=== PATIENT | female | born 1945 | race Caucasian/White ===

== ENCOUNTER → 2016-09-20 | Outpatient (REF) | payer MEDICARE, BC, OTHER | LOC: M LAB REF 16:25 | PROVIDERS: ATTEND Nurse Practitioner Adult Health | DX: J45.909 Unspecified asthma, uncomplicated (principal) ==

== ENCOUNTER → 2017-03-28 | Outpatient (REF) | payer MEDICARE, BC, OTHER | LOC: M LAB REF 13:11 | PROVIDERS: ATTEND Nurse Practitioner Adult Health | DX: J45.909 Unspecified asthma, uncomplicated (principal) ==

== ENCOUNTER → 2017-04-16 | Outpatient (REF) | payer MEDICARE, OTHER | LOC: M LAB REF 13:55 | PROVIDERS: ATTEND Nurse Practitioner Adult Health | DX: J45.909 Unspecified asthma, uncomplicated (principal) ==

== ENCOUNTER → 2017-11-26 | Outpatient (REF) | payer MEDICARE, OTHER | LOC: M SFHCLERA 13:04 | DX: R30.0 Dysuria (principal) | CPT/HCPCS: 87088; 87186 ==

== ENCOUNTER 2017-12-19 09:27 | Day surgery (SDC) | payer MEDICARE, OTHER, BC ==
[2017-12-19] MEDS: NS 1,000 ML IV (09:44)
[2017-12-19] MEDS ORDERED: PROPOFOL 200 MG/20 ML VIAL As Ordered (10:09)
[2017-12-19] MEDS ORDERED: LIDOCAINE 2% INJ 100 MG/5 ML SDV (FOR ANES.) As Ordered (10:09)
== END 2017-12-19 11:53 | disposition home or self-care (01) ==
LOC: M OPP 09:27
DX: K62.5 Hemorrhage of anus and rectum (principal); K51.90 Ulcerative colitis, unspecified, without complications; K64.0 First degree hemorrhoids; M19.90 Unspecified osteoarthritis, unspecified site; J45.909 Unspecified asthma, uncomplicated; J44.9 Chronic obstructive pulmonary disease, unspecified; Z87.440 Personal history of urinary (tract) infections; Z87.891 Personal history of nicotine dependence; Z88.1 Allergy status to other antibiotic agents; Z79.899 Other long term (current) drug therapy
CPT/HCPCS: 45380

== ENCOUNTER → 2018-03-20 | Outpatient (REF) | payer MEDICARE, OTHER ==
[2018-03-20 13:36] LABS: THEOPHYLLINE LEVEL 3.6 UG/ML (10.0-20.0)
== END ==
LOC: M LAB REF 12:45
DX: J45.909 Unspecified asthma, uncomplicated (principal)
CPT/HCPCS: 80198

== ENCOUNTER 2018-03-26 17:03 | Inpatient (IN) | payer MEDICARE, BC, OTHER ==
[2018-03-26] MEDS: ONDANSETRON 4MG/2ML VIAL (J2405) IV (17:53)
[2018-03-26 17:59] LABS: ALBUMIN 4.1 GM/DL (3.2-5.2); ALBUMIN/GLOBULIN RATIO 1.41 (1.00-1.93); ALKALINE PHOSPHATASE 73 U/L (45-117); ALT/SGPT 15 U/L (12-78); ANION GAP 9 MEQ/L (8-16); AST/SGOT 14 U/L (7-37); BASO % 0.3 % (0.0-1.0); BILIRUBIN,DIRECT 0.1 MG/DL (0.0-0.2); BILIRUBIN,TOTAL 0.7 MG/DL (0.2-1.0); BLOOD UREA NITROGEN 14 MG/DL (7-18); CALCIUM LEVEL 9.5 MG/DL (8.8-10.2); CARBON DIOXIDE LEVEL 27 MEQ/L (21-32); CHLORIDE LEVEL 105 MEQ/L (98-107); CK-MB VALUE MASS < 1.0 NG/ML (<3.6); CPK CREATINE PHOSPHOKINASE 54 U/L (26-192); CREATININE FOR GFR 0.68 MG/DL (0.55-1.30); EOS # 0.1 10^3/uL (0.0-0.50); EOS % 0.9 % (0.0-3.0); GLOMERULAR FILTRATION RATE > 60.0 (>39); GLUCOSE, FASTING 124 MG/DL (70-100); HEMATOCRIT 44.5 % (36.0-47.0); HEMOGLOBIN 14.6 g/dl (12.0-15.5); IMMATURE GRANULOCYTE % 0.5 % (0-3.0); LIPASE 82 U/L (73-393); LYMPH # 0.9 10^3/uL (1.5-4.5); LYMPH % 10.4 % (24.0-44.0); MB/CK RELATIVE INDEX 1.85 (< OR =4); MEAN CORPUSCULAR HEMOGLOBIN 29.3 pg (27.0-33.0); MEAN CORPUSCULAR HGB CONC 32.8 g/dl (32.0-36.5); MEAN CORPUSCULAR VOLUME 89.4 fl (80.0-96.0); MONO # 0.3 10^3/uL (0.0-0.8); MONO % 3.4 % (0.0-5.0); NEUTROPHILS # 7.5 10^3/uL (1.8-7.7); NEUTROPHILS % 84.5 % (36.0-66.0); PLATELET COUNT, AUTOMATED 236 10^3/uL (150-450); POTASSIUM SERUM 3.7 MEQ/L (3.5-5.1); RED BLOOD COUNT 4.98 10^6/uL (4.00-5.40); RED CELL DISTRIBUTION WIDTH 13.2 % (11.5-14.5); SODIUM LEVEL 141 MEQ/L (136-145); TROPONIN I < 0.02 NG/ML (< 0.10); WHITE BLOOD COUNT 8.9 10^3/uL (4.0-10.0)
[2018-03-26 18:06] LABS: INR 1.03; PROTHROMBIN TIME 13.7 SECONDS (12.1-14.4)
[2018-03-26 18:07] LABS: PARTIAL THROMBOPLASTIN TIME 25.4 SECONDS (25.4-37.6)
[2018-03-26 18:10] LABS: D-DIMER QUANT 376.5 ng/ml (<500)
[2018-03-26] MEDS: MORPHINE 2 MG/ML 1ML SYRINGE (J2270) IV (18:43)
[2018-03-26] MEDS: METOCLOPRAMIDE INJ 10MG/2ML VIAL (J2765) IV (19:45)
[2018-03-26] MEDS: HYDROMORPHONE HCL 0.5 MG/ 0.5 ML SYRINGE (J1170 PER 1) IV ×2 (19:53→21:39)
[2018-03-26] MEDS ORDERED: ISOVUE-370 76% 100ML VIAL (Q9967) As Ordered (20:17)
[2018-03-27] MEDS: MORPHINE 4 MG/ML 1ML VIAL/SYRINGE (J2270) IV (03:16)
[2018-03-27] MEDS: NS 1,000 ML IV ×2 (04:45→17:35)
[2018-03-27] MEDS: PANTOPRAZOLE 40MG INJ (PROTONIX) (C9113) IV (05:01)
[2018-03-27] MEDS: HEPARIN SOD (PORCINE) 5000 UNITS/ML VIAL SC ×3 (05:01→22:11)
[2018-03-27] MEDS: ONDANSETRON 4MG/2ML VIAL (J2405) IV (05:01)
[2018-03-27 07:08] LABS: BASO % 0.3 % (0.0-1.0); EOS % 0.1 % (0.0-3.0); HEMATOCRIT 44.9 % (36.0-47.0); IMMATURE GRANULOCYTE % 0.4 % (0-3.0); LYMPH # 0.8 10^3/uL (1.5-4.5); LYMPH % 7.4 % (24.0-44.0); MEAN CORPUSCULAR HEMOGLOBIN 29.4 pg (27.0-33.0); MEAN CORPUSCULAR HGB CONC 33.4 g/dl (32.0-36.5); MEAN CORPUSCULAR VOLUME 87.9 fl (80.0-96.0); MONO # 0.9 10^3/uL (0.0-0.8); NEUTROPHILS % 83.8 % (36.0-66.0); PLATELET COUNT, AUTOMATED 229 10^3/uL (150-450); RED BLOOD COUNT 5.11 10^6/uL (4.00-5.40); WHITE BLOOD COUNT 10.8 10^3/uL (4.0-10.0)
[2018-03-27 07:44] LABS: ALBUMIN 3.7 GM/DL (3.2-5.2); ALBUMIN/GLOBULIN RATIO 1.03 (1.00-1.93); ALKALINE PHOSPHATASE 70 U/L (45-117); ALT/SGPT 15 U/L (12-78); ANION GAP 6 MEQ/L (8-16); AST/SGOT 14 U/L (7-37); BILIRUBIN,TOTAL 0.8 MG/DL (0.2-1.0); BLOOD UREA NITROGEN 12 MG/DL (7-18); CARBON DIOXIDE LEVEL 30 MEQ/L (21-32); CHLORIDE LEVEL 103 MEQ/L (98-107); CREATININE FOR GFR 0.67 MG/DL (0.55-1.30); GLOMERULAR FILTRATION RATE > 60.0 (>39); GLUCOSE, FASTING 123 MG/DL (70-100); POTASSIUM SERUM 3.9 MEQ/L (3.5-5.1); SODIUM LEVEL 139 MEQ/L (136-145); TOTAL PROTEIN 7.3 GM/DL (6.4-8.2); TROPONIN I 0.15 NG/ML (< 0.10)
[2018-03-27] MEDS ORDERED: ALBUTEROL 90 MCG/ACT 8GM HFA INHALER INH (08:30)
[2018-03-27] MEDS: THEOPHYLLINE (THEO-24) 100MG SR **CAPSULE PO ×2 (09:00)
[2018-03-27] MEDS ORDERED: E-Z-PAQUE 96% w/w SUSP 176GM BTL As Ordered (09:07)
[2018-03-27] MEDS ORDERED: E-Z-GAS II EFFERVESCENT PACKET (SODIUM BICARB./CITRIC ACID/SIMETHICONE) As Ordered (09:08)
[2018-03-27] MEDS ORDERED: E-Z-HD 98% w/w 340GM SUSP BTL As Ordered (09:08)
[2018-03-27] MEDS: LISINOPRIL 5 MG TAB PO (14:04)
[2018-03-27 15:22] LABS: CPK CREATINE PHOSPHOKINASE 59 U/L (26-192); MB/CK RELATIVE INDEX 2.37 (< OR =4); TROPONIN I 0.19 NG/ML (< 0.10)
[2018-03-27] MEDS: ANORO ELLIPTA INH (15:51)
[2018-03-27] MEDS: KETOROLAC 30 MG/ML VIAL (J1885) IV (16:27)
[2018-03-27] MEDS: PIPERACILLIN/TAZOBACTAM SOD 3.375 GM in D5W MINI-BAG PLUS 50 ML IV ×2 (17:34→22:11)
[2018-03-27] MEDS: ASPIRIN 81 MG CHEW TABLET PO (17:35)
[2018-03-27 23:11] LABS: CPK CREATINE PHOSPHOKINASE 54 U/L (26-192); MB/CK RELATIVE INDEX 2.04 (< OR =4)
[2018-03-28] MEDS: PIPERACILLIN/TAZOBACTAM SOD 3.375 GM in D5W MINI-BAG PLUS 50 ML IV ×4 (05:11→22:28)
[2018-03-28] MEDS: HEPARIN SOD (PORCINE) 5000 UNITS/ML VIAL SC ×3 (05:11→22:28)
[2018-03-28] MEDS: PANTOPRAZOLE 40MG INJ (PROTONIX) (C9113) IV (05:11)
[2018-03-28 06:54] LABS: BASO # 0.1 10^3/uL (0.0-0.2); BASO % 0.6 % (0.0-1.0); EOS # 0.1 10^3/uL (0.0-0.50); EOS % 1.8 % (0.0-3.0); HEMATOCRIT 38.6 % (36.0-47.0); IMMATURE GRANULOCYTE % 0.3 % (0-3.0); LYMPH # 1.3 10^3/uL (1.5-4.5); LYMPH % 16.4 % (24.0-44.0); MEAN CORPUSCULAR HEMOGLOBIN 28.7 pg (27.0-33.0); MEAN CORPUSCULAR HGB CONC 32.4 g/dl (32.0-36.5); MEAN CORPUSCULAR VOLUME 88.5 fl (80.0-96.0); MONO # 0.8 10^3/uL (0.0-0.8); MONO % 9.8 % (0.0-5.0); NEUTROPHILS # 5.5 10^3/uL (1.8-7.7); NEUTROPHILS % 71.1 % (36.0-66.0); PLATELET COUNT, AUTOMATED 195 10^3/uL (150-450); RED BLOOD COUNT 4.36 10^6/uL (4.00-5.40); RED CELL DISTRIBUTION WIDTH 13.2 % (11.5-14.5); WHITE BLOOD COUNT 7.8 10^3/uL (4.0-10.0)
[2018-03-28 07:00] LABS: HEMOGLOBIN 12.5 g/dl (12.0-15.5)
[2018-03-28 07:26] LABS: ALBUMIN 2.8 GM/DL (3.2-5.2); ALBUMIN/GLOBULIN RATIO 0.97 (1.00-1.93); ALKALINE PHOSPHATASE 52 U/L (45-117); ALT/SGPT 14 U/L (12-78); ANION GAP 10 MEQ/L (8-16); AST/SGOT 12 U/L (7-37); BILIRUBIN,DIRECT 0.3 MG/DL (0.0-0.2); BILIRUBIN,TOTAL 1.2 MG/DL (0.2-1.0); BLOOD UREA NITROGEN 21 MG/DL (7-18); CALCIUM LEVEL 7.9 MG/DL (8.8-10.2); CARBON DIOXIDE LEVEL 28 MEQ/L (21-32); CHLORIDE LEVEL 105 MEQ/L (98-107); CK-MB VALUE MASS < 1.0 NG/ML (<3.6); CPK CREATINE PHOSPHOKINASE 43 U/L (26-192); CREATININE FOR GFR 0.92 MG/DL (0.55-1.30); GLOMERULAR FILTRATION RATE > 60.0 (>39); GLUCOSE, FASTING 82 MG/DL (70-100); MB/CK RELATIVE INDEX 2.33 (< OR =4); POTASSIUM SERUM 3.2 MEQ/L (3.5-5.1); SODIUM LEVEL 143 MEQ/L (136-145); TOTAL PROTEIN 5.7 GM/DL (6.4-8.2); TROPONIN I 0.09 NG/ML (< 0.10)
[2018-03-28] MEDS: ANORO ELLIPTA INH (08:12)
[2018-03-28] MEDS: POTASSIUM CHLORIDE 10 MEQ SR TABLET PO ×2 (09:42→10:30)
[2018-03-28] MEDS: NS 1,000 ML IV ×4 (09:42→16:36)
[2018-03-28] MEDS: THEOPHYLLINE (THEO-24) 100MG SR **CAPSULE PO (09:43)
[2018-03-28] MEDS: ASPIRIN 81 MG ENTERIC TAB PO (09:43)
[2018-03-28] MEDS: KETOROLAC 30 MG/ML VIAL (J1885) IV (13:43)
[2018-03-28 15:23] LABS: CK-MB VALUE MASS < 1.0 NG/ML (<3.6); CPK CREATINE PHOSPHOKINASE 47 U/L (26-192); MB/CK RELATIVE INDEX 2.13 (< OR =4); TROPONIN I 0.06 NG/ML (< 0.10)
[2018-03-28 15:30] LABS: HEMATOCRIT 35.7 % (36.0-47.0); HEMOGLOBIN 11.7 g/dl (12.0-15.5); MEAN CORPUSCULAR HEMOGLOBIN 29.6 pg (27.0-33.0); MEAN CORPUSCULAR HGB CONC 32.8 g/dl (32.0-36.5); MEAN CORPUSCULAR VOLUME 90.4 fl (80.0-96.0); PLATELET COUNT, AUTOMATED 187 10^3/uL (150-450); RED BLOOD COUNT 3.95 10^6/uL (4.00-5.40); RED CELL DISTRIBUTION WIDTH 13.2 % (11.5-14.5); WHITE BLOOD COUNT 7.2 10^3/uL (4.0-10.0)
[2018-03-28 15:40] LABS: ANION GAP 6 MEQ/L (8-16); BLOOD UREA NITROGEN 22 MG/DL (7-18); CALCIUM LEVEL 7.7 MG/DL (8.8-10.2); CARBON DIOXIDE LEVEL 29 MEQ/L (21-32); CHLORIDE LEVEL 107 MEQ/L (98-107); GLOMERULAR FILTRATION RATE > 60.0 (>39); GLUCOSE, FASTING 85 MG/DL (70-100); POTASSIUM SERUM 3.5 MEQ/L (3.5-5.1); SODIUM LEVEL 142 MEQ/L (136-145)
[2018-03-28 19:34] LABS: AMORPHOUS SEDIMENT SMALL (NEGATIVE); APPEARANCE, URINE HAZY (CLEAR); BACTERIA, URINE AUTO NEGATIVE (NEGATIVE); BILIRUBIN, URINE AUTO NEGATIVE (NEGATIVE); BLOOD, URINE BLOOD NEGATIVE (NEGATIVE); COLOR, URINE YELLOW (YELLOW); GLUCOSE, URINE (UA) AUTO NEGATIVE (NEGATIVE); KETONE, URINE AUTO 1+ mg/dL (NEGATIVE); LEUKOCYTE ESTERASE, URINE AUTO NEGATIVE (NEGATIVE); NITRITE, URINE AUTO NEGATIVE (NEGATIVE); PROTEIN, URINE AUTO NEGATIVE (NEGATIVE); RBC, URINE AUTO 3 /HPF (0-3); SPECIFIC GRAVITY URINE AUTO 1.042 (1.002-1.035); SQUAMOUS EPITHELIAL CELL UR AU 1 /HPF (0-6); UROBILINOGEN, URINE AUTO 0.2 mg/dL (0.0-2.0); WBC, URINE AUTO 3 /HPF (0-3)
[2018-03-29] MEDS: PIPERACILLIN/TAZOBACTAM SOD 3.375 GM in D5W MINI-BAG PLUS 50 ML IV ×4 (03:55→22:43)
[2018-03-29] MEDS: PANTOPRAZOLE 40MG INJ (PROTONIX) (C9113) IV (05:49)
[2018-03-29] MEDS: HEPARIN SOD (PORCINE) 5000 UNITS/ML VIAL SC ×3 (05:49→22:28)
[2018-03-29 06:38] LABS: BASO % 0.4 % (0.0-1.0); EOS # 0.4 10^3/uL (0.0-0.50); EOS % 6.9 % (0.0-3.0); HEMATOCRIT 33.4 % (36.0-47.0); HEMOGLOBIN 10.7 g/dl (12.0-15.5); IMMATURE GRANULOCYTE % 0.4 % (0-3.0); LYMPH # 1.5 10^3/uL (1.5-4.5); LYMPH % 28.1 % (24.0-44.0); MEAN CORPUSCULAR VOLUME 90.5 fl (80.0-96.0); MONO # 0.6 10^3/uL (0.0-0.8); MONO % 10.7 % (0.0-5.0); NEUTROPHILS # 2.9 10^3/uL (1.8-7.7); NEUTROPHILS % 53.5 % (36.0-66.0); PLATELET COUNT, AUTOMATED 156 10^3/uL (150-450); RED BLOOD COUNT 3.69 10^6/uL (4.00-5.40); RED CELL DISTRIBUTION WIDTH 13.3 % (11.5-14.5); WHITE BLOOD COUNT 5.3 10^3/uL (4.0-10.0)
[2018-03-29 06:56] LABS: ANION GAP 7 MEQ/L (8-16); BLOOD UREA NITROGEN 13 MG/DL (7-18); CALCIUM LEVEL 7.8 MG/DL (8.8-10.2); CARBON DIOXIDE LEVEL 25 MEQ/L (21-32); CHLORIDE LEVEL 111 MEQ/L (98-107); CREATININE FOR GFR 0.75 MG/DL (0.55-1.30); GLOMERULAR FILTRATION RATE > 60.0 (>39); GLUCOSE, FASTING 85 MG/DL (70-100); POTASSIUM SERUM 3.2 MEQ/L (3.5-5.1); SODIUM LEVEL 143 MEQ/L (136-145)
[2018-03-29] MEDS: SODIUM CHLORIDE 0.9% 1000ML IV (07:30)
[2018-03-29] MEDS: ANORO ELLIPTA INH (08:17)
[2018-03-29] MEDS: DOCUSATE SODIUM 100 MG CAP PO (09:00)
[2018-03-29] MEDS: ASPIRIN 81 MG ENTERIC TAB PO (09:20)
[2018-03-29] MEDS: THEOPHYLLINE (THEO-24) 100MG SR **CAPSULE PO (09:20)
[2018-03-29] MEDS: POTASSIUM CHLORIDE 10 MEQ SR TABLET PO ×2 (09:21→14:12)
[2018-03-29 11:13] LABS: LACTIC ACID SEPSIS PROTOCOL 1.3 MMOL/L (0.4-2.0)
[2018-03-29 11:14] LABS: ALBUMIN 2.7 GM/DL (3.2-5.2); ALKALINE PHOSPHATASE 54 U/L (45-117); ALT/SGPT 17 U/L (12-78); ANION GAP 2 MEQ/L (8-16); AST/SGOT 28 U/L (7-37); BILIRUBIN,TOTAL 0.6 MG/DL (0.2-1.0); BLOOD UREA NITROGEN 12 MG/DL (7-18); C REACTIVE PROTEIN QUANTITATIV 7.34 MG/DL (0.00-0.30); CALCIUM LEVEL 7.8 MG/DL (8.8-10.2); CARBON DIOXIDE LEVEL 29 MEQ/L (21-32); CHLORIDE LEVEL 112 MEQ/L (98-107); CREATININE FOR GFR 0.81 MG/DL (0.55-1.30); GLOMERULAR FILTRATION RATE > 60.0 (>39); GLUCOSE, FASTING 85 MG/DL (70-100); POTASSIUM SERUM 3.7 MEQ/L (3.5-5.1); SODIUM LEVEL 143 MEQ/L (136-145); TOTAL PROTEIN 5.4 GM/DL (6.4-8.2)
[2018-03-29 13:48] LABS: LDH LACTATE DEHYDROGENASE 160 U/L (84-246)
[2018-03-29 14:15] LABS: REASON FOR REVIEW RBC MORPHOLOGY; SLIDE REVIEW Report; SOURCE PERIPHERAL SMEAR
[2018-03-30] MEDS: PIPERACILLIN/TAZOBACTAM SOD 3.375 GM in D5W MINI-BAG PLUS 50 ML IV ×4 (04:42→23:33)
[2018-03-30] MEDS: HEPARIN SOD (PORCINE) 5000 UNITS/ML VIAL SC ×3 (05:00→22:00)
[2018-03-30 07:03] LABS: BASO % 0.8 % (0.0-1.0); EOS # 0.4 10^3/uL (0.0-0.50); EOS % 8.2 % (0.0-3.0); HEMATOCRIT 34.4 % (36.0-47.0); HEMOGLOBIN 11.2 g/dl (12.0-15.5); IMMATURE GRANULOCYTE % 0.4 % (0-3.0); LYMPH # 1.3 10^3/uL (1.5-4.5); LYMPH % 24.4 % (24.0-44.0); MEAN CORPUSCULAR HEMOGLOBIN 28.9 pg (27.0-33.0); MEAN CORPUSCULAR HGB CONC 32.6 g/dl (32.0-36.5); MEAN CORPUSCULAR VOLUME 88.9 fl (80.0-96.0); MONO # 0.6 10^3/uL (0.0-0.8); MONO % 11.1 % (0.0-5.0); NEUTROPHILS # 2.8 10^3/uL (1.8-7.7); NEUTROPHILS % 55.1 % (36.0-66.0); PLATELET COUNT, AUTOMATED 170 10^3/uL (150-450); RED BLOOD COUNT 3.87 10^6/uL (4.00-5.40); RED CELL DISTRIBUTION WIDTH 13.2 % (11.5-14.5); WHITE BLOOD COUNT 5.1 10^3/uL (4.0-10.0)
[2018-03-30 07:30] LABS: ANION GAP 6 MEQ/L (8-16); BLOOD UREA NITROGEN 7 MG/DL (7-18); CARBON DIOXIDE LEVEL 27 MEQ/L (21-32); CHLORIDE LEVEL 110 MEQ/L (98-107); CREATININE FOR GFR 0.67 MG/DL (0.55-1.30); GLOMERULAR FILTRATION RATE > 60.0 (>39); GLUCOSE, FASTING 87 MG/DL (70-100); POTASSIUM SERUM 4.1 MEQ/L (3.5-5.1); SODIUM LEVEL 143 MEQ/L (136-145)
[2018-03-30] MEDS: ANORO ELLIPTA INH (07:34)
[2018-03-30] MEDS: THEOPHYLLINE (THEO-24) 100MG SR **CAPSULE PO (08:05)
[2018-03-30] MEDS: ASPIRIN 81 MG ENTERIC TAB PO (08:05)
[2018-03-30] MEDS: DOCUSATE SODIUM 100 MG CAP PO (08:07)
[2018-03-30] MEDS: MORPHINE 4 MG/ML 1ML VIAL/SYRINGE (J2270) IV ×3 (08:07→13:26)
[2018-03-30] MEDS: NS 1,000 ML IV ×2 (10:00→22:27)
[2018-03-30 10:18] LABS: ALBUMIN 2.7 GM/DL (3.2-5.2); ALBUMIN/GLOBULIN RATIO 1.08 (1.00-1.93); ALKALINE PHOSPHATASE 66 U/L (45-117); ALT/SGPT 24 U/L (12-78); AST/SGOT 26 U/L (7-37); BILIRUBIN,DIRECT 0.2 MG/DL (0.0-0.2); BILIRUBIN,TOTAL 0.6 MG/DL (0.2-1.0); C REACTIVE PROTEIN QUANTITATIV 5.05 MG/DL (0.00-0.30); TOTAL PROTEIN 5.2 GM/DL (6.4-8.2)
[2018-03-30 10:55] LABS: LACTIC ACID SEPSIS PROTOCOL 0.8 MMOL/L (0.4-2.0)
[2018-03-30] MEDS: MOM 30ML SUSPENSION UDC PO (13:26)
[2018-03-30] MEDS ORDERED: HYDROMORPHONE HCL 0.5 MG/ 0.5 ML SYRINGE (J1170 PER 1) As Ordered (15:44)
[2018-03-30] MEDS: HYDROMORPHONE HCL 0.5 MG/ 0.5 ML SYRINGE (J1170 PER 1) IV (15:55)
[2018-03-30] MEDS ORDERED: MIDAZOLAM INJ 2 MG/2 ML VIAL (J2250) As Ordered (19:15)
[2018-03-30] MEDS ORDERED: fentaNYL 250 MCG/5 ML INJECTION (J3010) As Ordered (19:15)
[2018-03-30] MEDS ORDERED: LIDOCAINE 2% INJ 100 MG/5 ML SDV (FOR ANES.) As Ordered (19:15)
[2018-03-30] MEDS ORDERED: PROPOFOL 200 MG/20 ML VIAL As Ordered (19:15)
[2018-03-30] MEDS ORDERED: dexameTHASONE 4 MG/ML 1ML VIAL (J1100) As Ordered ×2 (19:15→19:16)
[2018-03-30] MEDS ORDERED: ROCURONIUM BROMIDE 50 MG/5 ML VIAL As Ordered (19:15)
[2018-03-30] MEDS ORDERED: ONDANSETRON 4MG/2ML VIAL (J2405) As Ordered (19:16)
[2018-03-30] MEDS ORDERED: SUGAMMADEX SODIUM 500 MG/5 ML VIAL (BRIDION) As Ordered (19:25)
[2018-03-30] MEDS ORDERED: LABETALOL HCL 100 MG/20 ML VIAL As Ordered (19:26)
[2018-03-30] MEDS: BUPIVACAINE/EPIN 0.25% 30 ML VIAL As Ordered (20:39)
[2018-03-30] MEDS ORDERED: ONDANSETRON 4MG/2ML VIAL (J2405) IV (21:15)
[2018-03-30] MEDS ORDERED: HYDROMORPHONE HCL 0.5 MG/ 0.5 ML SYRINGE (J1170 PER 1) IV (21:15)
[2018-03-30] MEDS ORDERED: fentaNYL 100 MCG/2 ML INJECTION (J3010) IV (21:15)
[2018-03-30] MEDS ORDERED: LR 1,000 ML IV (21:15)
[2018-03-30] MEDS ORDERED: PERCOCET 5MG/325MG TAB PO (21:15)
[2018-03-31] MEDS: PIPERACILLIN/TAZOBACTAM SOD 3.375 GM in D5W MINI-BAG PLUS 50 ML IV ×4 (04:11→22:52)
[2018-03-31] MEDS: HYDROMORPHONE HCL 0.5 MG/ 0.5 ML SYRINGE (J1170 PER 1) IV ×4 (05:26→19:51)
[2018-03-31] MEDS: HEPARIN SOD (PORCINE) 5000 UNITS/ML VIAL SC ×3 (05:26→21:24)
[2018-03-31 06:14] LABS: BASO % 0.2 % (0.0-1.0); HEMATOCRIT 40.9 % (36.0-47.0); IMMATURE GRANULOCYTE % 0.5 % (0-3.0); LYMPH # 0.4 10^3/uL (1.5-4.5); LYMPH % 5.8 % (24.0-44.0); MEAN CORPUSCULAR HGB CONC 33.5 g/dl (32.0-36.5); MEAN CORPUSCULAR VOLUME 86.5 fl (80.0-96.0); MONO # 0.4 10^3/uL (0.0-0.8); NEUTROPHILS # 5.3 10^3/uL (1.8-7.7); NEUTROPHILS % 87.5 % (36.0-66.0); PLATELET COUNT, AUTOMATED 216 10^3/uL (150-450); RED BLOOD COUNT 4.73 10^6/uL (4.00-5.40); RED CELL DISTRIBUTION WIDTH 12.7 % (11.5-14.5)
[2018-03-31 06:26] LABS: HEMOGLOBIN 13.7 g/dl (12.0-15.5)
[2018-03-31 06:32] LABS: ANION GAP 8 MEQ/L (8-16); BLOOD UREA NITROGEN 7 MG/DL (7-18); CALCIUM LEVEL 8.6 MG/DL (8.8-10.2); CARBON DIOXIDE LEVEL 29 MEQ/L (21-32); CHLORIDE LEVEL 101 MEQ/L (98-107); CREATININE FOR GFR 0.66 MG/DL (0.55-1.30); GLOMERULAR FILTRATION RATE > 60.0 (>39); GLUCOSE, FASTING 159 MG/DL (70-100); POTASSIUM SERUM 4.3 MEQ/L (3.5-5.1); SODIUM LEVEL 138 MEQ/L (136-145)
[2018-03-31] MEDS: ANORO ELLIPTA INH (07:28)
[2018-03-31 08:06] LABS: HAPTOGLOBIN 206 mg/dL (34-200)
[2018-03-31] MEDS: ASPIRIN 81 MG ENTERIC TAB PO (08:20)
[2018-03-31] MEDS: DOCUSATE SODIUM 100 MG CAP PO ×2 (08:20→21:27)
[2018-03-31] MEDS: THEOPHYLLINE (THEO-24) 100MG SR **CAPSULE PO (08:20)
[2018-03-31] MEDS: BISACODYL 10 MG SUPP PR (11:05)
[2018-03-31] MEDS: SENNA 8.6 MG TAB (SENOKOT) PO ×2 (11:05→21:28)
[2018-04-01] MEDS: HYDROMORPHONE HCL 0.5 MG/ 0.5 ML SYRINGE (J1170 PER 1) IV ×2 (00:16→09:04)
[2018-04-01] MEDS: PIPERACILLIN/TAZOBACTAM SOD 3.375 GM in D5W MINI-BAG PLUS 50 ML IV ×4 (05:23→23:35)
[2018-04-01] MEDS: HEPARIN SOD (PORCINE) 5000 UNITS/ML VIAL SC ×3 (05:23→20:43)
[2018-04-01 05:57] LABS: BASO % 0.3 % (0.0-1.0); EOS # 0.1 10^3/uL (0.0-0.50); EOS % 1.3 % (0.0-3.0); HEMATOCRIT 38.5 % (36.0-47.0); HEMOGLOBIN 12.4 g/dl (12.0-15.5); IMMATURE GRANULOCYTE % 0.4 % (0-3.0); LYMPH % 12.6 % (24.0-44.0); MEAN CORPUSCULAR HEMOGLOBIN 28.6 pg (27.0-33.0); MEAN CORPUSCULAR HGB CONC 32.2 g/dl (32.0-36.5); MEAN CORPUSCULAR VOLUME 88.7 fl (80.0-96.0); MONO # 0.7 10^3/uL (0.0-0.8); MONO % 9.3 % (0.0-5.0); NEUTROPHILS # 5.7 10^3/uL (1.8-7.7); NEUTROPHILS % 76.1 % (36.0-66.0); PLATELET COUNT, AUTOMATED 226 10^3/uL (150-450); RED BLOOD COUNT 4.34 10^6/uL (4.00-5.40); RED CELL DISTRIBUTION WIDTH 13.2 % (11.5-14.5); WHITE BLOOD COUNT 7.5 10^3/uL (4.0-10.0)
[2018-04-01 06:19] LABS: ANION GAP 5 MEQ/L (8-16); BLOOD UREA NITROGEN 7 MG/DL (7-18); CALCIUM LEVEL 8.5 MG/DL (8.8-10.2); CARBON DIOXIDE LEVEL 32 MEQ/L (21-32); CHLORIDE LEVEL 101 MEQ/L (98-107); CREATININE FOR GFR 0.69 MG/DL (0.55-1.30); GLOMERULAR FILTRATION RATE > 60.0 (>39); GLUCOSE, FASTING 110 MG/DL (70-100); POTASSIUM SERUM 3.6 MEQ/L (3.5-5.1); SODIUM LEVEL 138 MEQ/L (136-145)
[2018-04-01] MEDS: ANORO ELLIPTA INH (08:27)
[2018-04-01] MEDS: THEOPHYLLINE (THEO-24) 100MG SR **CAPSULE PO (09:03)
[2018-04-01] MEDS: SENNA 8.6 MG TAB (SENOKOT) PO ×2 (09:03→20:43)
[2018-04-01] MEDS: ASPIRIN 81 MG ENTERIC TAB PO (09:03)
[2018-04-01] MEDS: DOCUSATE SODIUM 100 MG CAP PO ×2 (09:03→20:43)
[2018-04-01] MEDS: BISACODYL 10 MG SUPP PR (09:46)
[2018-04-01] MEDS: MOM 30ML SUSPENSION UDC PO ×2 (12:15→20:43)
[2018-04-02] MEDS: HEPARIN SOD (PORCINE) 5000 UNITS/ML VIAL SC (05:17)
[2018-04-02] MEDS: PIPERACILLIN/TAZOBACTAM SOD 3.375 GM in D5W MINI-BAG PLUS 50 ML IV (05:17)
[2018-04-02 06:06] LABS: BASO % 0.3 % (0.0-1.0); EOS # 0.6 10^3/uL (0.0-0.50); EOS % 8.8 % (0.0-3.0); HEMATOCRIT 35.5 % (36.0-47.0); HEMOGLOBIN 11.6 g/dl (12.0-15.5); IMMATURE GRANULOCYTE % 0.3 % (0-3.0); LYMPH # 1.3 10^3/uL (1.5-4.5); MEAN CORPUSCULAR HEMOGLOBIN 28.4 pg (27.0-33.0); MEAN CORPUSCULAR HGB CONC 32.7 g/dl (32.0-36.5); MONO # 0.7 10^3/uL (0.0-0.8); MONO % 10.1 % (0.0-5.0); NEUTROPHILS # 3.9 10^3/uL (1.8-7.7); NEUTROPHILS % 60.5 % (36.0-66.0); PLATELET COUNT, AUTOMATED 245 10^3/uL (150-450); RED BLOOD COUNT 4.08 10^6/uL (4.00-5.40); RED CELL DISTRIBUTION WIDTH 13.2 % (11.5-14.5); WHITE BLOOD COUNT 6.5 10^3/uL (4.0-10.0)
[2018-04-02 06:28] LABS: ANION GAP 5 MEQ/L (8-16); BLOOD UREA NITROGEN 7 MG/DL (7-18); CALCIUM LEVEL 7.9 MG/DL (8.8-10.2); CARBON DIOXIDE LEVEL 32 MEQ/L (21-32); CHLORIDE LEVEL 103 MEQ/L (98-107); CREATININE FOR GFR 0.69 MG/DL (0.55-1.30); GLOMERULAR FILTRATION RATE > 60.0 (>39); GLUCOSE, FASTING 108 MG/DL (70-100); POTASSIUM SERUM 3.3 MEQ/L (3.5-5.1); SODIUM LEVEL 140 MEQ/L (136-145)
[2018-04-02] MEDS ORDERED: POTASSIUM CHLORIDE 10 MEQ SR TABLET PO (07:30)
[2018-04-02] MEDS: ANORO ELLIPTA INH (07:46)
[2018-04-02] MEDS: MOM 30ML SUSPENSION UDC PO (09:00)
[2018-04-02] MEDS: BISACODYL 10 MG SUPP PR (09:00)
[2018-04-02] MEDS: SENNA 8.6 MG TAB (SENOKOT) PO (09:00)
[2018-04-02] MEDS: DOCUSATE SODIUM 100 MG CAP PO (09:00)
[2018-04-02] MEDS: ASPIRIN 81 MG ENTERIC TAB PO (10:17)
[2018-04-02] MEDS: ACETAMINOPHEN TAB 650MG DOSE (2X325MG) PO (10:18)
[2018-04-02] MEDS: POTASSIUM CHLORIDE 10 MEQ SR TABLET PO (10:19)
[2018-04-02] MEDS: THEOPHYLLINE (THEO-24) 100MG SR **CAPSULE PO (10:20)
[2018-04-02] MEDS ORDERED: PERCOCET 5MG/325MG TAB PO ×2 (10:30)
== END 2018-04-02 12:44 | disposition home or self-care (01) | DRG 419 ==
LOC: M ED INP 03-27 00:22 → M MS4PR 03-27 04:40 → M ED 17:03 → M MSPAV 03-27 17:07
PROC: 0FT44ZZ Resection of Gallbladder, Percutaneous Endoscopic Approach (ICD-10-PCS; principal; 2018-03-30 12:23)
DX: K81.0 Acute cholecystitis (principal); J44.9 Chronic obstructive pulmonary disease, unspecified; E87.6 Hypokalemia; D64.9 Anemia, unspecified; I27.20 Pulmonary hypertension, unspecified; I08.3 Combined rheumatic disorders of mitral, aortic and tricuspid valves; Z79.899 Other long term (current) drug therapy; Z88.8 Allergy status to other drugs, medicaments and biological substances; K21.9 Gastro-esophageal reflux disease without esophagitis; K59.00 Constipation, unspecified

== ENCOUNTER → 2018-06-12 | Outpatient (REF) | payer MEDICARE, BC, OTHER ==
[~2018-06-12] MED LIST: ALEN70TA57 PO; ANOR1AER IN; ASPI81TA85 PO; BACITAB PO; CEFD300CAP PO; FLAG500T PO; IMIT50TA PO; OXYC1TAB23 PO; PROAAER10 INH; RISE1TAB8 PO; SUMA25TA3 PO; THEO400T4 PO; VITA50005 PO
== END ==
LOC: M LAB REF 14:39
PROVIDERS: ATTEND Nurse Practitioner Adult Health
DX: N39.0 Urinary tract infection, site not specified (principal)

== ENCOUNTER → 2018-07-06 | Outpatient (CLI) | payer MEDICARE, BC, OTHER ==
--- NOTE | 2018-07-06 11:07 | REP ---
PA and lateral chest: Comparison is 03/28/2017. The lung black are clear. The cardiac size is normal. The edward, mediastinum, and skeletal structures are unremarkable. Impression: Negative PA and lateral chest. There is no interval change. Electronically Signed by Randy Lilly MD 07/06/2018 10:59 A
== END ==
LOC: M LRY 10:39
PROVIDERS: ATTEND Nurse Practitioner Family
DX: R05 Cough (principal)
CPT/HCPCS: 71046; 87804; G0463

== ENCOUNTER → 2018-08-30 | Outpatient (REF) | payer MEDICARE, OTHER ==
[~2018-08-30] MED LIST changes: -ALEN70TA57 PO; +ALEN70TA74 PO
== END ==
LOC: M LAB REF 12:21
PROVIDERS: ATTEND Nurse Practitioner Adult Health
DX: N39.0 Urinary tract infection, site not specified (principal)

== ENCOUNTER → 2018-09-30 | Outpatient (REF) | payer MEDICARE, OTHER | LOC: M LAB REF 12:05 | PROVIDERS: ATTEND Nurse Practitioner Adult Health | DX: J45.909 Unspecified asthma, uncomplicated (principal) ==

== ENCOUNTER → 2019-04-01 | Outpatient (REF) | payer MEDICARE, OTHER | LOC: M LAB REF 12:36 | PROVIDERS: ATTEND Internal Medicine | DX: G43.909 Migraine, unspecified, not intractable, without status migrainosus (principal); L82.1 Other seborrheic keratosis ==

== ENCOUNTER 2019-04-16 03:37 | Inpatient (IN) | payer MEDICARE, OTHER ==
[~2019-04-16] VITALS: Ht 165.1 cm; Wt 48.9 kg
[2019-04-16] MEDS ORDERED: SYMB80INH INH (03:56)
[2019-04-16] MEDS ORDERED: NS 500 ML IV ONE ×2 (04:30→09:00)
[2019-04-16 04:39] LABS: BASO % 0.4 % (0.0-1.0); EOS # 0.1 10^3/uL (0.0-0.5); EOS % 1.1 % (0.0-3.0); HEMATOCRIT 44.9 % (36.0-47.0); HEMOGLOBIN 14.2 g/dl (12.0-15.5); LYMPH # 0.5 10^3/uL (1.5-5.0); LYMPH % 6.4 % (24.0-44.0); MEAN CORPUSCULAR HEMOGLOBIN 28.3 pg (27.0-33.0); MEAN CORPUSCULAR HGB CONC 31.6 g/dl (32.0-36.5); MEAN CORPUSCULAR VOLUME 89.6 fl (80.0-96.0); MONO # 0.3 10^3/uL (0.0-0.8); MONO % 3.5 % (0.0-5.0); NEUTROPHILS # 7.1 10^3/uL (1.5-8.5); NEUTROPHILS % 88.2 % (36.0-66.0); PLATELET COUNT, AUTOMATED 271 10^3/uL (150-450); RED BLOOD COUNT 5.01 10^6/uL (4.00-5.40); WHITE BLOOD COUNT 8.1 10^3/uL (4.0-10.0)
[2019-04-16 05:11] LABS: ALBUMIN 3.5 GM/DL (3.2-5.2); ALT/SGPT 13 U/L (12-78); BILIRUBIN,DIRECT 0.1 MG/DL (0.0-0.2); BILIRUBIN,TOTAL 0.5 MG/DL (0.2-1.0); BLOOD UREA NITROGEN 13 MG/DL (7-18); CALCIUM LEVEL 9.1 MG/DL (8.8-10.2); CARBON DIOXIDE LEVEL 26 MEQ/L (21-32); CHLORIDE LEVEL 108 MEQ/L (98-107); CREATININE FOR GFR 0.71 MG/DL (0.55-1.30); GLOMERULAR FILTRATION RATE > 60.0 (>39); GLUCOSE, FASTING 143 MG/DL (70-100); LIPASE 73 U/L (73-393); SODIUM LEVEL 142 MEQ/L (136-145); TOTAL PROTEIN 7.1 GM/DL (6.4-8.2)
[2019-04-16] MEDS: GASTROGRAFIN SOLUTION 30ML PO SCH ×2 (05:49→06:17)
[2019-04-16] MEDS ORDERED: ISOVUE-370 76% 100ML VIAL (Q9967) As Ordered ONE (07:27)
[2019-04-16] MEDS ORDERED: ONDANSETRON 4MG/2ML VIAL (J2405) IV ONE (08:15)
--- NOTE | 2019-04-16 08:55 | REPVR ---
PROCEDURE INFORMATION: Exam: CT Abdomen And Pelvis With Contrast Exam date and time: 04/16/2019 5:27 AM Age: 74 years old Clinical history: Pain and Condition or Disease; Other: DIVERTICULITIS; Abdominal pain; Generalized TECHNIQUE: Imaging protocol: Computed tomography of the abdomen and pelvis with intravenous contrast. Radiation optimization: All CT scans at this facility use at least one of these dose optimization techniques: automated exposure control; mA and/or kV adjustment per patient size (includes targeted exams where dose is matched to clinical indication); or iterative reconstruction. Contrast material: ISOVUE 370; Contrast volume: 100 ml; Contrast route: IV; Other contrast: Route: Oral, Material: gastrographin, Volume: 20ml contrast 280ml water; COMPARISON: CT ABD/PEL W/IV CONTRAST ONLY 03/26/2018 8:15 PM FINDINGS: Lungs: [place] centrilobular emphysematous lung disease. Liver: Hypodense lesion in the right hepatic lobe measuring 2.9 x 3.7 x 2.9 cm with peripheral nodular enhancement. Gallbladder and bile ducts: Status post cholecystectomy. CBD measures 9 mm in diameter. Pancreas: Normal. No ductal dilation. Spleen: Normal. No splenomegaly. Adrenals: Normal. No mass. Kidneys and ureters: Cyst in the upper pole of left kidney measuring 2.6 cm. No hydronephrosis bilaterally. Stomach and bowel: Diffuse dilated loops of small bowel. Transition point in the right hemipelvis. Sigmoid colon is diffusely contracted and thickened. Colonic diverticulosis. No definite evidence of diverticulitis. Appendix: The appendix is not seen. However, there is no evidence of appendicitis. Intraperitoneal space: No free air. There is diffuse infiltration of the omentum in the ventral left lower quadrant. Moderate ascites. Vasculature: Mild atherosclerotic disease. No aortic aneurysm. Lymph nodes: Unremarkable. No enlarged lymph nodes. Bladder: Unremarkable as visualized. Reproductive: Unremarkable as visualized. Status post hysterectomy. Bones/joints: Mild degenerative changes of the hips. No acute fracture. Soft tissues: Unremarkable. IMPRESSION: 1. Diffuse dilated loops of small bowel with transition point in the right lower quadrant. Consistent with high-grade partial versus complete small bowel obstruction. 2. No evidence of bowel perforation. 3. Moderate ascites. Suspicious for peritonitis. Malignant ascites cannot be excluded. 4. Sigmoid colon is diffusely contracted and thickened. Hypertrophy versus reactive versus primary colitis. 5. Status post cholecystectomy. 6. Hypodense lesion in the right hepatic lobe with peripheral nodular enhancement. Consistent with hemangioma. 7. Left renal cyst. No follow-up is necessary. 8. Additional findings as described. COMMENT: Verbally discussed with Dr. Moore at 04/16/2019 8:49 AM EST. Electronically signed by: Jed Da Silva On 04/16/2019 08:54:41 AM
[2019-04-16] MEDS ORDERED: FISH1000 PO (09:19)
[2019-04-16] MEDS ORDERED: LORazepam 2 MG/ML VIAL (J2060) IV STA (10:43)
[2019-04-16] MEDS ORDERED: DEXTROSE 50% 50 ML SYRINGE IV PRN (12:00)
[2019-04-16] MEDS ORDERED: IPRATROPIUM 0.5MG/ALBUTEROL 2.5MG INH SOL UD 3ML (DUONEB)(J7620) NEB PRN (12:00)
[2019-04-16] MEDS ORDERED: GLUCOSE 4 GM CHEW TABLET PO PRN (12:00)
[2019-04-16] MEDS ORDERED: GLUCAGON FOR INJ 1 MG VIAL (J1610) SC PRN (12:00)
[2019-04-16] MEDS: LR 1,000 ML IV SCH ×2 (12:08→23:06)
[2019-04-16 12:50] VITALS: BP 158/79
[2019-04-16] MEDS: HEPARIN SOD (PORCINE) 5000 UNITS/ML VIAL SC SCH ×2 (12:53→20:04)
[2019-04-16] MEDS: ONDANSETRON 4MG/2ML VIAL (J2405) IV PRN (14:23)
--- NOTE | 2019-04-16 16:18 | HPEPDOC ---
General Date of Admission Apr 16, 2019 at 11:47 Date of Service: Apr 16, 2019 Chief Complaint The patient is a 74-year-old female admitted with a reason for visit of Small Bowel Obstruction. Source: Patient, Family, RN/MD, Old records History of Present Illness 74 year old female with PMH of chronic asthma ulcerative colitis, multiple abdominal surgeries presented to [facility] ED with abdominal pain, nausea and constipation for 5 days and vomiting and retching since last night. Her pain was all over the abdomen but maximum in the rihgt lower quadrant was dull achiing with intrmittent cramps, no radiation, 8/10 in intensity associated to nausea and vomiting. She was found to have SBO. CT showed Diffuse dilated loops of small bowel with transition point in the right lower quadrant. Consistent with high-grade partial versus complete small bowel obstruction. No evidence of bowel perforation. Moderate ascites. Suspicious for peritonitis. Malignant ascites cannot be excluded. Sigmoid colon is diffusely contracted and thickened. Hypertrophy versus reactive versus primary colitis. Home Medications Scheduled Budesonide/Formoterol (Symbicort 80-4.5 Mcg Inhaler) 6.9 Gm Hfa.aer.ad, 1 PUFF INH BID, (Reported) Ergocalciferol (Vitamin D2) (Vitamin D2) 50,000 Unit Cap, 50,000 UNIT PO 1XWK, (Reported) TAKES ON SATURDAYS [place]-3 Fatty Acids/Fish Oil (Fish Oil 1,000 mg Capsule) 1 Each Capsule, 1,000 MG PO DAILY, (Reported) Risedronate Sodium (Risedronate Sodium) 35 Mg Tab, 70 MG PO 1XWK, (Reported) TAKES ON SATURDAYS Theophylline Anhydrous (Theophylline) 400 Mg Tabcr, 400 MG PO DAILY, (Reported) TAKES AT 0700 Scheduled PRN Albuterol Sulfate (Proair Hfa) 108 Mcg/Act Aer, 2 PUFF INH Q4H PRN for SOB/WHEEZING, (Reported) Sumatriptan Succinate (Sumatriptan Succinate) 25 Mg Tab, 25 MG PO BID PRN for MIGRAINE, (Reported) Allergies Coded Allergies: Influenza Virus Vaccines (Verified Allergy, Intermediate, swelling of arm x 2 when receiving injectable vaccine, 04/16/19) verified with pt on admission 04/16/19 bacitracin (Verified Adverse Reaction, Unknown, 04/16/19) PATIENT STATES IT DOESN'T WORK ON HER SO SHE MUST BE ALLERGIC neomycin (Verified Adverse Reaction, Unknown, 04/16/19) PATIENT STATES IT DOESN'T WORK ON HER SO SHE MUST BE ALLERGIC polymyxin B (Verified Adverse Reaction, Unknown, 04/16/19) PATIENT STATES IT DOESN'T WORK ON HER SO SHE MUST BE ALLERGIC Past Medical History Medical History Chronic asthma, ulcerative colitis, diverliculosis Surgical History appendectomy, cholecystectomy, bilateral cataracts, hystrectomy, bladder sling Family History Significant Family History: Cancer (mother colon cancer) Social History * Smoker: former Smoker Alcohol: rarely Drugs: denies A-FIB/CHADSVASC A-FIB History Current/History of A-Fib/PAF?: No Review of Systems Constitutional: Denies: Chills, Fever, Night Sweats Eyes: Denies: Pain, Vision change ENT: Denies: Head Aches, Ear Pain, Dysphagia Skin: Denies: Rash, Lesions, Breakdown Pulmonary: Denies: Dyspnea, Cough Cardiovascular: Denies: Chest Pain, Palpitations, Orthopnea, Paroxysmal Noc. Dyspnea, Lt Headedness Gastrointestinal: Reports: Nausea, Vomiting, Abdominal Pain, Constipation Genitourinary: Denies: Dysuria, Frequency, Incontinence, Retention Hematologic: Denies: Bruising, Bleeding Excessively Musculoskeletal: Denies: Neck Pain, Back Pain, Joint Pain, Muscle Pain, Spasms Physical Examination General Exam: Positive: Alert, Cooperative, Mild Distress Eye Exam: Positive: PERRLA, Conjunctiva & lids normal, EOMI; Negative: Sclera icteric ENT Exam: Positive: Atraumatic, Mucous membr. moist/pink, Pharynx Normal Neck Exam: Positive: Supple; Negative: JVD, thyromegaly Chest Exam: Positive: Clear to auscultation, Normal air movement Heart Exam: Positive: Rate Normal, Regular Rhythm, Normal S1, Normal S2; Negative: Murmurs, Rubs Telemetry: Positive: No significant arrhythmia Abdomen Exam: Positive: BS Hypoactive, Soft, Tenderness (in all the quadrants maximum in the right lower quadrant.), Other (No guarding or rigidity) Extremity Exam: Positive: Normal pulses; Negative: Clubbing, Cyanosis, Edema Skin Exam: Positive: Nl turgor and temperature; Negative: Breakdown, Lesion Neuro Exam: Positive: Normal Speech, Strength at 5/5 X4 ext, Normal Tone Vital Signs Vital Signs Date Time Temp Pulse Resp B/P (MAP) Pulse Ox O2 Delivery O2 Flow Rate FiO2 04/16/19 12:50 98.5 70 18 158/79 (105) 97 Room Air Laboratory Data Labs 24H Laboratory Tests 2 04/16/19 04:33: Immature Granulocyte % (Auto) 0.4, Neutrophils (%) (Auto) 88.2H, Lymphocytes (%) (Auto) 6.4L, Monocytes (%) (Auto) 3.5, Eosinophils (%) (Auto) 1.1, Basophils (%) (Auto) 0.4, Neutrophils # (Auto) 7.1, Lymphocytes # (Auto) 0.5L, Monocytes # (Auto) 0.3, Eosinophils # (Auto) 0.1, Basophils # (Auto) 0.0, Nucleated Red Blood Cells % (auto) 0.0, Anion Gap 8, Glomerular Filtration Rate > 60.0, Calcium Level 9.1, Total Bilirubin 0.5, Direct Bilirubin 0.1, Aspartate Amino Transf (AST/SGOT) 10, Alanine Aminotransferase (ALT/SGPT) 13, Alkaline Phosphatase 71, Total Protein 7.1, Albumin 3.5, Albumin/Globulin Ratio 0.97L, Lipase 73 04/16/19 07:43: Urine Color YELLOW, Urine Appearance CLEAR, Urine pH 5.0, Urine Specific [place] 1.027, Urine Protein 1+H, Urine Glucose (UA) NEGATIVE, Urine Ketones 1+H, Urine Blood 1+H, Urine Nitrite NEGATIVE, Urine Bilirubin NEGATIVE, Urine Urobilinogen 0.2, Urine Leukocyte Esterase NEGATIVE, Urine WBC (Auto) 1, Urine RBC (Auto) 4H, Urine Hyaline Casts (Auto) 0, Urine Bacteria (Auto) NEGATIVE, Urine Squamous Epithelial Cells 0, Urine Mucus (Auto) SMALL, Urine Sperm (Auto) 04/16/19 09:51: Lactic Acid Level 1.0 04/16/19 13:14: Bedside Glucose (Misc Panel) 87 CBC/BMP Laboratory Tests 04/16/19 04:33 Assessment/Plan 74 year old female with PMH of chronic asthma ulcerative colitis, multiple abdominal surgeries presented to the [facility] ED with abdominal pain, nausea and constipation for 5 days and vomiting and retching since last night. Her pain was all over the abdomen but maximum in the rit lower quadrant was dull achiing with intrmittent cramps, no radiation, 8/10 in intensity associated to nausea and vomiting. She was found to have SBO. SBO probably due to adhesions. NPO, IVF, NG tube to suction seen by Dr Amador plan is to monitor for 48 to 72 hours to see if this resolves spontaneously or not. Pain control with IV morphine prn. ZOfran Chronic asthma will continue home meds. except theophylline. Gi prophylaxis with PPI. Plan / VTE VTE Prophylaxis Ordered?: Yes JACOB DOWNEY MD Apr 16, 2019 16:17
[2019-04-16] MEDS: MORPHINE 2 MG/ML 1ML VIAL (J2270) IV PRN (16:31)
[2019-04-16] MEDS: SYMBICORT 80/4.5MCG INHALER 6GM INH SCH ×2 (16:37→20:49)
[2019-04-16] MEDS: PANTOPRAZOLE 40MG INJ (PROTONIX) (C9113) IV SCH (17:50)
[2019-04-16 20:00] VITALS: BP 114/62
[2019-04-17 04:00] VITALS: BP 120/66
[2019-04-17 06:45] LABS: BASO % 0.6 % (0.0-1.0); EOS # 0.2 10^3/uL (0.0-0.5); EOS % 3.6 % (0.0-3.0); HEMATOCRIT 39.4 % (36.0-47.0); HEMOGLOBIN 12.5 g/dl (12.0-15.5); LYMPH # 1.1 10^3/uL (1.5-5.0); LYMPH % 21.3 % (24.0-44.0); MEAN CORPUSCULAR HEMOGLOBIN 28.7 pg (27.0-33.0); MEAN CORPUSCULAR HGB CONC 31.7 g/dl (32.0-36.5); MEAN CORPUSCULAR VOLUME 90.4 fl (80.0-96.0); MONO # 0.5 10^3/uL (0.0-0.8); MONO % 10.9 % (0.0-5.0); NEUTROPHILS # 3.1 10^3/uL (1.5-8.5); NEUTROPHILS % 63.2 % (36.0-66.0); PLATELET COUNT, AUTOMATED 250 10^3/uL (150-450); RED BLOOD COUNT 4.36 10^6/uL (4.00-5.40); WHITE BLOOD COUNT 4.9 10^3/uL (4.0-10.0)
[2019-04-17 07:08] LABS: BLOOD UREA NITROGEN 12 MG/DL (7-18); CALCIUM LEVEL 8.4 MG/DL (8.8-10.2); CARBON DIOXIDE LEVEL 30 MEQ/L (21-32); CHLORIDE LEVEL 109 MEQ/L (98-107); CREATININE FOR GFR 0.73 MG/DL (0.55-1.30); GLOMERULAR FILTRATION RATE > 60.0 (>39); GLUCOSE, FASTING 91 MG/DL (70-100); POTASSIUM SERUM 3.5 MEQ/L (3.5-5.1); SODIUM LEVEL 144 MEQ/L (136-145)
[2019-04-17] MEDS: SYMBICORT 80/4.5MCG INHALER 6GM INH SCH ×2 (07:55→20:36)
[2019-04-17] MEDS: HEPARIN SOD (PORCINE) 5000 UNITS/ML VIAL SC SCH ×2 (08:15→20:18)
[2019-04-17] MEDS: LR 1,000 ML IV SCH (08:15)
--- NOTE | 2019-04-17 09:35 | IPNPDOC ---
Subjective Date Seen The patient was seen on 04/17/19. Subjective Chief Complaint/HPI Says abdominal pain is better this morning. Had passed gas once early this morning. No bowel movement. No nausea this am. no fever or chills. complaining of headache mostly at the back of the neck and throbbing in type . Says its her migraine. Objective Physical Examination General Exam: Positive: Alert, Cooperative, Mild Distress Eye Exam: Positive: PERRLA, Conjunctiva & lids normal, EOMI; Negative: Sclera icteric ENT Exam: Positive: Atraumatic, Mucous membr. moist/pink, Pharynx Normal Neck Exam: Positive: Supple; Negative: JVD, thyromegaly Chest Exam: Positive: Clear to auscultation, Normal air movement Heart Exam: Positive: Rate Normal, Regular Rhythm, Normal S1, Normal S2; Negative: Murmurs, Rubs Telemetry: Positive: No significant arrhythmia Abdomen Exam: Positive: BS Hyperactive, Soft, Tenderness (mild diffuse), Other (No guarding or rigidity) Extremity Exam: Positive: Normal pulses; Negative: Clubbing, Cyanosis, Edema Skin Exam: Positive: Nl turgor and temperature; Negative: Breakdown, Lesion Neuro Exam: Positive: Normal Speech, Strength at 5/5 X4 ext, Normal Tone Assessment /Plan Assessment 74 year old female with PMH of chronic asthma ulcerative colitis, Migraine, multiple abdominal surgeries presented to [facility] ED with abdominal pain, nausea and constipation for 5 days and vomiting and retching since last night. Her pain was all over the abdomen but maximum in the rihgt lower quadrant was dull achiing with intrmittent cramps, no radiation, 8/10 in intensity associated to nausea and vomiting. She was found to have SBO. SBO probably due to adhesions. NPO, IVF, NG tube to suction seen by Dr Amador plan is to monitor for 48 to 72 hours to see if this resolves spontaneously or not. Pain control with IV morphine prn. ZOfran Chronic asthma will continue home meds. except theophylline. Gi prophylaxis with PPI. Migraine flare will give tylenol, reglan and imitrex. Plan/VTE VTE Prophylaxis Ordered?: Yes VS, I&O, 24H, Fishbone Vital Signs/I&O Vital Signs Date Time Temp Pulse Resp B/P (MAP) Pulse Ox O2 Delivery O2 Flow Rate FiO2 04/17/19 04:00 97.9 66 18 120/66 (84) 94 Room Air I&O- Last 24 Hours up to 6 AM 04/17/19 06:00 Intake Total 2605 ml Output Total 560 ml Balance 2045 ml Laboratory Data 24H LABS Laboratory Tests 2 04/16/19 09:51: Lactic Acid Level 1.0 04/16/19 13:14: Bedside Glucose (Misc Panel) 87 04/16/19 18:06: Bedside Glucose (Misc Panel) 93 04/16/19 23:32: Bedside Glucose (Misc Panel) 97 04/17/19 06:18: Immature Granulocyte % (Auto) 0.4, Neutrophils (%) (Auto) 63.2, Lymphocytes (%) (Auto) 21.3L, Monocytes (%) (Auto) 10.9H, Eosinophils (%) (Auto) 3.6H, Basophils (%) (Auto) 0.6, Neutrophils # (Auto) 3.1, Lymphocytes # (Auto) 1.1L, Monocytes # (Auto) 0.5, Eosinophils # (Auto) 0.2, Basophils # (Auto) 0.0, Nucleated Red Blood Cells % (auto) 0.0, Anion Gap 5L, Glomerular Filtration Rate > 60.0, Calc ium Level 8.4L CBC/BMP Laboratory Tests 04/17/19 06:18 JACOB DOWNEY MD Apr 17, 2019 09:35
[2019-04-17] MEDS ORDERED: SUMAtriptan SUCCINATE 6 MG/0.5 ML VIAL SC ONE (10:00)
[2019-04-17] MEDS ORDERED: METOCLOPRAMIDE INJ 10MG/2ML VIAL (J2765) IV ONE (10:00)
[2019-04-17] MEDS ORDERED: ACETAMINOPHEN *IV* 1,000 MG in IV 1 EA IV ONE (10:00)
[2019-04-17] MEDS: PIPERACILLIN/TAZOBACTAM SOD 2.25 GM in D5W MINI-BAG PLUS 50 ML IV SCH ×3 (10:40→22:01)
[2019-04-17] MEDS ORDERED: PIPERACILLIN/TAZOBACTAM SOD 2.25 GM in D5W MINI-BAG PLUS 50 ML IV SCH (11:00)
[2019-04-17 13:17] VITALS: BP 124/56
[2019-04-17] MEDS ORDERED: D5W/0.9% SODIUM CHLORIDE 1,000 ML IV ONE (14:00)
[2019-04-17 14:15] VITALS: BP 125/77
[2019-04-17] MEDS: PANTOPRAZOLE 40MG INJ (PROTONIX) (C9113) IV SCH (16:42)
[2019-04-17 22:00] VITALS: BP 142/71
[2019-04-18] MEDS: PIPERACILLIN/TAZOBACTAM SOD 2.25 GM in D5W MINI-BAG PLUS 50 ML IV SCH ×4 (05:10→22:47)
[2019-04-18 06:00] VITALS: BP 155/74
[2019-04-18] MEDS: SYMBICORT 80/4.5MCG INHALER 6GM INH SCH ×2 (07:29→21:18)
--- NOTE | 2019-04-18 08:56 | REP ---
Clinical: Small bowel obstruction. Technique: Upright view of the chest with supine and upright views of the abdomen and pelvis. Findings: Frontal upright view of the chest demonstrates no acute cardiopulmonary process or free air below the diaphragm to suspect pneumoperitoneum. The nasogastric tube barely extends into the stomach and the sideport appears to be above the level of the diaphragm warranting advancement. Supine and upright views of the abdomen and pelvis demonstrate nonspecific bowel gas pattern without obstruction or perforation. Oral contrast material identified within the colon. Surgical clips in the right upper quadrant consistent with prior cholecystectomy. No organomegaly. No abnormal calcifications. Skeletal structures normal for age. Impression: Nonspecific bowel gas pattern without evidence for small bowel obstruction. Nasogastric tube warrants advancement. Electronically Signed by Salvador Still MD 04/18/2019 08:48 A
[2019-04-18] MEDS: HEPARIN SOD (PORCINE) 5000 UNITS/ML VIAL SC SCH ×2 (09:03→20:33)
[2019-04-18] MEDS ORDERED: SODIUM CHLORIDE 0.9% 1000ML IV ONE (09:15)
[2019-04-18] MEDS ORDERED: E-Z-PAQUE 96% w/w SUSP 176GM BTL As Ordered ONE (10:49)
[2019-04-18] MEDS ORDERED: ACETAMINOPHEN *IV* 1,000 MG in IV 1 EA IV ONE (11:00)
--- NOTE | 2019-04-18 11:58 | IPNPDOC ---
Subjective Date Seen The patient was seen on 04/18/19. Subjective Chief Complaint/HPI Continues to have abdominal pain. Says lots of noises in the abdomen, Passed gas but no bowel movement. And says the pain is worse than yesterday. No fever or chills, no chest pain or sob. Complains of neck pain. and headache Objective Physical Examination General Exam: Positive: Alert, Cooperative, Mild Distress Eye Exam: Positive: PERRLA, Conjunctiva & lids normal, EOMI; Negative: Sclera icteric ENT Exam: Positive: Atraumatic, Mucous membr. moist/pink, Pharynx Normal Neck Exam: Positive: Supple; Negative: JVD, thyromegaly Chest Exam: Positive: Clear to auscultation, Normal air movement Heart Exam: Positive: Rate Normal, Regular Rhythm, Normal S1, Normal S2; Negative: Murmurs, Rubs Telemetry: Positive: No significant arrhythmia Abdomen Exam: Positive: BS Hyperactive, Soft, Tenderness (All over the abdomen), Other (There is rebound tenderness and mild guarding. ) Extremity Exam: Positive: Normal pulses; Negative: Clubbing, Cyanosis, Edema Skin Exam: Positive: Nl turgor and temperature; Negative: Breakdown, Lesion Neuro Exam: Positive: Normal Speech, Strength at 5/5 X4 ext, Normal Tone Assessment /Plan Assessment 74 year old female with PMH of chronic asthma ulcerative colitis, Migraine, multiple abdominal surgeries presented to [facility] ED with abdominal pain, nausea and constipation for 5 days and vomiting and retching since last night. Her pain was all over the abdomen but maximum in the rihgt lower quadrant was dull achiing with intrmittent cramps, no radiation, 8/10 in intensity associated to nausea and vomiting. She was found to have SBO. SBO probably due to adhesions. NPO, IVF, NG tube to suction seen by Dr Amador plan is to monitor for 48 to 72 hours to see if this resolves spontaneously or not. Pain control with IV morphine prn. ZOfran Chronic asthma will continue home meds. except theophylline. Gi prophylaxis with PPI. Migraine / tension headache will give tylenol. Plan/VTE VTE Prophylaxis Ordered?: Yes VS, I&O, 24H, Fishbone Vital Signs/I&O Vital Signs Date Time Temp Pulse Resp B/P (MAP) Pulse Ox O2 Delivery O2 Flow Rate FiO2 04/18/19 06:00 98.0 80 18 155/74 (101) 93 04/17/19 14:15 Room Air I&O- Last 24 Hours up to 6 AM 04/18/19 06:00 Intake Total 750 ml Output Total 1350 ml Balance -600 ml Laboratory Data 24H LABS Laboratory Tests 2 04/17/19 11:36: Bedside Glucose (Misc Panel) 66L 04/17/19 12:35: Bedside Glucose (Misc Panel) 67L 04/17/19 14:21: Bedside Glucose (Misc Panel) 63L 04/17/19 18:01: Bedside Glucose (Misc Panel) 91 04/17/19 23:47: Bedside Glucose (Misc Panel) 110 04/18/19 06:12: Bedside Glucose (Misc Panel) 87 JACOB DOWNEY MD Apr 18, 2019 06:36
[2019-04-18] MEDS: D5W/0.9% SODIUM CHLORIDE 1,000 ML IV SCH ×2 (14:38→15:15)
--- NOTE | 2019-04-18 15:57 | REP ---
Small bowel follow-through The procedure was performed under the direct supervision of Dr. Neumann. The images were reviewed with Dr. Neumann. Liquid barium was administered and the barium column was followed through the small bowel to the level of the terminal ileum. Small bowel transit time is approximately 165 minutes . During fluoroscopy gentle palpation shows all loops are freely movable and pliable. There are no fixed or angulated loops. The small bowel mucosal pattern is normal in course and caliber. There is no transition to suggest a partial small bowel obstruction. Spot filming of the terminal ileum shows it to be unremarkable. Impression: Small bowel follow-through examination within normal limits. 4.1 minutes of fluoro time was utilized for this procedure. Electronically Signed by CHETAN العلي 04/18/2019 03:24 P Electronically Signed by Randy Neumann MD 04/18/2019 03:48 P
[2019-04-18] MEDS: PANTOPRAZOLE 40MG INJ (PROTONIX) (C9113) IV SCH (17:42)
[2019-04-18 22:00] VITALS: BP 135/80
[2019-04-19] MEDS: PIPERACILLIN/TAZOBACTAM SOD 2.25 GM in D5W MINI-BAG PLUS 50 ML IV SCH ×4 (04:53→23:49)
[2019-04-19 06:00] VITALS: BP 132/75
[2019-04-19] MEDS: SYMBICORT 80/4.5MCG INHALER 6GM INH SCH ×2 (06:24→18:41)
[2019-04-19 07:08] LABS: BASO % 0.4 % (0.0-1.0); EOS # 0.8 10^3/uL (0.0-0.5); EOS % 15.7 % (0.0-3.0); HEMOGLOBIN 12.2 g/dl (12.0-15.5); LYMPH # 0.9 10^3/uL (1.5-5.0); MEAN CORPUSCULAR HEMOGLOBIN 27.9 pg (27.0-33.0); MEAN CORPUSCULAR HGB CONC 31.3 g/dl (32.0-36.5); MEAN CORPUSCULAR VOLUME 89.2 fl (80.0-96.0); MONO # 0.6 10^3/uL (0.0-0.8); MONO % 12.6 % (0.0-5.0); NEUTROPHILS # 2.5 10^3/uL (1.5-8.5); NEUTROPHILS % 53.1 % (36.0-66.0); PLATELET COUNT, AUTOMATED 218 10^3/uL (150-450); RED BLOOD COUNT 4.37 10^6/uL (4.00-5.40); WHITE BLOOD COUNT 4.8 10^3/uL (4.0-10.0)
[2019-04-19 07:44] LABS: BLOOD UREA NITROGEN 3 MG/DL (7-18); CALCIUM LEVEL 8.1 MG/DL (8.8-10.2); CARBON DIOXIDE LEVEL 27 MEQ/L (21-32); CHLORIDE LEVEL 107 MEQ/L (98-107); CREATININE FOR GFR 0.66 MG/DL (0.55-1.30); GLOMERULAR FILTRATION RATE > 60.0 (>39); GLUCOSE, FASTING 119 MG/DL (70-100); SODIUM LEVEL 140 MEQ/L (136-145)
[2019-04-19] MEDS: THEOPHYLLINE 400 MG PO SCH (09:00)
[2019-04-19] MEDS: HEPARIN SOD (PORCINE) 5000 UNITS/ML VIAL SC SCH ×2 (09:23→21:44)
[2019-04-19] MEDS ORDERED: KCL 10MEQ/100ML SWI (KRUN) 10 MEQ in IV 1 EA IV ONE (10:00)
[2019-04-19] MEDS ORDERED: KCL 40MEQ IN D5/NS 1000ML 1,000 ML IV SCH (11:00)
--- NOTE | 2019-04-19 13:04 | IPNPDOC ---
Subjective Date Seen The patient was seen on 04/19/19. Subjective Chief Complaint/HPI Had 2 bowel movemnts yesterday and one today , soft worm like. Says abdominal pain is better than yesterday and says that the clear liquids has not worsened the pain. Objective Physical Examination General Exam: Positive: Alert, Cooperative, Mild Distress Eye Exam: Positive: PERRLA, Conjunctiva & lids normal, EOMI; Negative: Sclera icteric ENT Exam: Positive: Atraumatic, Mucous membr. moist/pink, Pharynx Normal Neck Exam: Positive: Supple; Negative: JVD, thyromegaly Chest Exam: Positive: Clear to auscultation, Normal air movement Heart Exam: Positive: Rate Normal, Regular Rhythm, Normal S1, Normal S2; Negative: Murmurs, Rubs Telemetry: Positive: No significant arrhythmia Abdomen Exam: Positive: BS Hyperactive, Soft, Tenderness (All over the abdomen), Other (no guarding or rebound tenderness today) Extremity Exam: Positive: Normal pulses; Negative: Clubbing, Cyanosis, Edema Skin Exam: Positive: Nl turgor and temperature; Negative: Breakdown, Lesion Neuro Exam: Positive: Normal Speech, Strength at 5/5 X4 ext, Normal Tone Assessment /Plan Assessment 74 year old female with PMH of chronic asthma ulcerative colitis, Migraine, multiple abdominal surgeries presented [facility] with abdominal pain, nausea and constipation for 5 days and vomiting and retching since last night. Her pain was all over the abdomen but maximum in the rihgt lower quadrant was dull achiing with intrmittent cramps, no radiation, 8/10 in intensity associated to nausea and vomiting. She was found to have SBO. SBO probably due to adhesions. seems to be resolving. Small bowel follow through was normal. will advance diet Chronic asthma will continue home meds. except theophylline. Gi prophylaxis with PPI. Migraine / tension headache will give tylenol prn Plan/VTE VTE Prophylaxis Ordered?: Yes VS, I&O, 24H, Fishbone Vital Signs/I&O Vital Signs Date Time Temp Pulse Resp B/P (MAP) Pulse Ox O2 Delivery O2 Flow Rate FiO2 04/19/19 06:00 97.8 74 15 132/75 (94) 95 Room Air I&O- Last 24 Hours up to 6 AM 04/19/19 06:00 Intake Total 1700 ml Output Total 1150 ml Balance 550 ml Laboratory Data 24H LABS Laboratory Tests 2 04/18/19 16:44: Bedside Glucose (Misc Panel) 99 04/19/19 00:12: Bedside Glucose (Misc Panel) 119H 04/19/19 05:58: Bedside Glucose (Misc Panel) 111H 04/19/19 06:58: Immature Granulocyte % (Auto) 0.2, Neutrophils (%) (Auto) 53.1, Lymphocytes (%) (Auto) 18.0L, Monocytes (%) (Auto) 12.6H, Eosinophils (%) (Auto) 15.7H, Basophils (%) (Auto) 0.4, Neutrophils # (Auto) 2.5, Lymphocytes # (Auto) 0.9L, Monocytes # (Auto) 0.6, Eosinophils # (Auto) 0.8H, Basophils # (Auto) 0.0, Nucleated Red Blood Cells % (auto) 0.0, Anion Gap 6L, Glomerular Filtration Rate > 60.0, Calcium Level 8.1L 04/19/19 11:53: Bedside Glucose (Misc Panel) 81L CBC/BMP Laboratory Tests 04/19/19 06:58 JACOB DOWNEY MD Apr 19, 2019 13:04
[2019-04-19] MEDS ORDERED: ACETAMINOPHEN TAB 650MG DOSE (2X325MG) PO PRN (13:15)
[2019-04-19] MEDS: PANTOPRAZOLE 40MG INJ (PROTONIX) (C9113) IV SCH (17:50)
[2019-04-19 18:00] VITALS: BP 128/83
--- NOTE | 2019-04-19 19:18 | IPNPDOC ---
Text Note Date of Service The patient was seen on 04/17/19. NOTE No acute events. Tolerating the NGT with minimal output. Abd pain is still pr esent, but the distention is improved. She is passing flatus, but no BM. VSSAF NAD abd - soft, TTP lower abdomen only, no rebound, no ventral hernias labs - below A) 74y/o female with history of UC and recent partial vs. complete SBO on CT P) NGT to LIS add abx ambultate await return of bowel function Kennedy Amador DO VS,Ignacio, I+O VS, Fishbone, I+O Laboratory Tests 04/19/19 06:58 Vital Signs Date Time Temp Pulse Resp B/P (MAP) Pulse Ox O2 Delivery O2 Flow Rate FiO2 04/19/19 14:40 16 04/19/19 06:00 97.8 74 132/75 (94) 95 Room Air I&O- Last 24 Hours up to 6 AM 04/19/19 06:00 Intake Total 1700 ml Output Total 1150 ml Balance 550 ml SOO AMADOR DO Apr 19, 2019 19:18
--- NOTE | 2019-04-19 19:21 | IPNPDOC ---
Text Note Date of Service The patient was seen on 04/18/19. NOTE No acute events. Tolerating the NGT with minimal output that is clear now. Abd pain is still present. She is passing flatus, but no BM. VSSAF NAD abd - soft, TTP lower abdomen only, no rebound, no ventral hernias labs - below A) 74y/o female with history of UC and recent partial vs. complete SBO on CT P) clamp NGT SBFT abx ambultate await return of bowel function Kennedy Amador DO VS,Ignacio, I+O VS, Jose Luise, I+O Laboratory Tests 04/19/19 06:58 Vital Signs Date Time Temp Pulse Resp B/P (MAP) Pulse Ox O2 Delivery O2 Flow Rate FiO2 04/19/19 14:40 16 04/19/19 06:00 97.8 74 132/75 (94) 95 Room Air I&O- Last 24 Hours up to 6 AM 04/19/19 06:00 Intake Total 1700 ml Output Total 1150 ml Balance 550 ml SOO AMADOR DO Apr 19, 2019 19:21
--- NOTE | 2019-04-19 21:18 | IPN ---
DATE: 04/19/2019 HISTORY: This is a patient followed by Dr. Amador for apparently bowel obstruction issues. She had undergone a small bowel followthrough study on 04/17/2019 which reportedly showed normal small bowel with no evidence of obstruction. She had an NG tube in place which was clamped yesterday. Apparently this became dislodged last night and it was left out. She has been taking some clear liquids. She denies any nausea or vomiting. She reports she still has some discomfort across the lower abdomen but is having some flatus and had a very small bowel movement earlier today. VITAL SIGNS: The patient has been afebrile with a pulse in the 60s and a normal blood pressure. Intake and output show that yesterday she had 900 in with 1125 recorded out. Today she has had 600 mL of urine output recorded so far. PHYSICAL EXAMINATION: The patient is a thin, older woman lying quietly on the hospital bed. She is alert and oriented. Heart exam shows a regular rhythm. The abdomen is thin and flat. She has some bowel sounds present. Palpation reveals the abdomen to be generally soft with some minimal tenderness across the lower abdomen. LABORATORY STUDIES: Include a CBC showing a white count of 5, hemoglobin 12, hematocrit of 39 and platelet count of 218,000. Differential count shows 53% neutrophils, 18% lymphocytes, 13% monocytes and 16% eosinophils. Chemistry profile shows a sodium of 140, potassium 3.0, chloride 107, CO2 of 27, BUN of 3, creatinine 0.7, and a glucose of 119. IMPRESSION: The patient appears to be resolving or to have resolved any bowel obstruction issues. She is having flatus and has had a small bowel movement. Her NG tube came out yesterday evening. She is tolerating clear liquids. PLAN: I would agree with advancing her diet as directed by the hospitalist. I do not anticipate any problems at this point with her tolerating an advanced diet. LENA
[2019-04-19 22:00] VITALS: BP 128/74
[2019-04-20] MEDS: MORPHINE 2 MG/ML 1ML VIAL (J2270) IV PRN (04:00)
[2019-04-20] MEDS: ONDANSETRON 4MG/2ML VIAL (J2405) IV PRN (04:05)
[2019-04-20] MEDS: PIPERACILLIN/TAZOBACTAM SOD 2.25 GM in D5W MINI-BAG PLUS 50 ML IV SCH ×4 (04:15→23:40)
[2019-04-20 06:00] VITALS: BP 108/66
[2019-04-20 06:31] LABS: BASO % 0.5 % (0.0-1.0); EOS # 0.8 10^3/uL (0.0-0.5); EOS % 12.9 % (0.0-3.0); HEMATOCRIT 38.9 % (36.0-47.0); HEMOGLOBIN 12.2 g/dl (12.0-15.5); LYMPH # 0.8 10^3/uL (1.5-5.0); LYMPH % 13.1 % (24.0-44.0); MEAN CORPUSCULAR HEMOGLOBIN 28.2 pg (27.0-33.0); MEAN CORPUSCULAR HGB CONC 31.4 g/dl (32.0-36.5); MEAN CORPUSCULAR VOLUME 89.8 fl (80.0-96.0); MONO # 0.6 10^3/uL (0.0-0.8); NEUTROPHILS # 3.7 10^3/uL (1.5-8.5); NEUTROPHILS % 63.3 % (36.0-66.0); PLATELET COUNT, AUTOMATED 232 10^3/uL (150-450); RED BLOOD COUNT 4.33 10^6/uL (4.00-5.40); WHITE BLOOD COUNT 5.8 10^3/uL (4.0-10.0)
[2019-04-20 06:52] LABS: BLOOD UREA NITROGEN 3 MG/DL (7-18); CALCIUM LEVEL 8.2 MG/DL (8.8-10.2); CARBON DIOXIDE LEVEL 29 MEQ/L (21-32); CHLORIDE LEVEL 106 MEQ/L (98-107); CREATININE FOR GFR 0.58 MG/DL (0.55-1.30); GLOMERULAR FILTRATION RATE > 60.0 (>39); GLUCOSE, FASTING 97 MG/DL (70-100); POTASSIUM SERUM 3.1 MEQ/L (3.5-5.1); SODIUM LEVEL 141 MEQ/L (136-145)
[2019-04-20] MEDS ORDERED: POTASSIUM CHLORIDE 10 MEQ SR TABLET PO ONE (07:45)
[2019-04-20] MEDS: HEPARIN SOD (PORCINE) 5000 UNITS/ML VIAL SC SCH ×2 (08:10→21:30)
[2019-04-20] MEDS: THEOPHYLLINE 400 MG PO SCH (08:10)
[2019-04-20] MEDS: SYMBICORT 80/4.5MCG INHALER 6GM INH SCH ×2 (08:57→21:15)
--- NOTE | 2019-04-20 12:04 | CR ---
DATE OF CONSULTATION: 04/16/2019 REASON FOR CONSULTATION: Bowel obstruction. HISTORY OF PRESENT ILLNESS: Patient 74-year-old female who presented with lower abdominal pains, abdominal distention, nausea and vomiting. She claims this has been going on for a couple of days, just been gradually getting worse. She has not had a bowel movement in 2 days. Prior to that she usually had very small bowel movements with slight mucous and slight blood in them. She has not had a large regular bowel movement in a long time. She does have colonoscopies regularly, last one was with Dr. Echevarria approximately a year ago. No complications or problems with that. When she came in she was having the nausea and vomiting. Denies any fevers or chills. No recent trauma. No recent illnesses. She is passing flatus. She denies any history of inflammatory bowel disease of any kind, however, there is a documented history of ulcerative colitis from Dr. Echevarria. PAST MEDICAL HISTORY: 1. Ulcerative colitis. 2. Chronic asthma. 3. Diverticulosis. PAST SURGICAL HISTORY: Appendectomy. Cholecystectomy. Bilateral cataracts. Hysterectomy. Bladder sling. FAMILY HISTORY: Noncontributory. ALLERGIES: Please see med rec. MEDICATIONS: Please see med rec. SOCIAL HISTORY: Denies drugs, alcohol, tobacco abuse. REVIEW OF SYSTEMS: Pertinent positives and negatives as stated in the HPI. PHYSICAL EXAMINATION: GENERAL: Alert and oriented times three. No acute distress. VITALS: Temperature 98.6, pulse 76, respirations 20 and blood pressure 149/90, pulse ox 97% on room air. HEENT: Pupils equal, round and reactive to light and accommodation. HEART: S1-S2 regular rate and rhythm. LUNGS: Clear to auscultation bilaterally. ABDOMEN: Soft, distended. Tender to palpation diffusely, mostly in the lower abdomen. No rebounding, no rigidity. EXTREMITIES: No clubbing, cyanosis or edema. LABORATORY DATA: White count 8.1, hemoglobin 14.2, platelets 271, sodium 142, potassium 4, creatinine 0.71. IMAGING: CT abdomen and pelvis from the emergency room showed diffuse dilated loops of small bowel with transition in the right lower quadrant consistent with high-grade partial versus complete small bowel obstruction. No evidence of perforation. Sigmoid colon is diffusely contracted and thickened. Hypertrophy versus reactive versus primary colitis. Moderate ascites suspicious for peritonitis. ASSESSMENT/PLAN: The patient is a 74-year-old female with likely partial small-bowel obstruction, likely secondary to inflammation. Will hold off on steroids for now, likely start her on some mild antibiotics for mild colitis. Will place an NG tube to low intermittent suction, watch her for 48-72 hours conservatively and see if there is any improvement. If there is no signs of any improvement then we will discuss surgical options later on. Otherwise, when she starts to have signs of bowel function will slowly remove the NG tube and advance her diet. We discussed this in detail with her and her daughter, all of their questions were answered.
--- NOTE | 2019-04-20 12:28 | IPNPDOC ---
Subjective Date Seen The patient was seen on 04/20/19. Subjective Chief Complaint/HPI Had another episode of severe lower abdominal pain last night with cramps when she felt its going to burst. She thinks it could be the full liquid dinner she had however was able to tolerate full liquids for breakfast this morning. Di get a morphine early this morning. Still not much appetite. She is pasing a little flatus and had a small bowel movement yesterday. Objective Physical Examination General Exam: Positive: Alert, Cooperative, Mild Distress Eye Exam: Positive: PERRLA, Conjunctiva & lids normal, EOMI; Negative: Sclera icteric ENT Exam: Positive: Atraumatic, Mucous membr. moist/pink, Pharynx Normal Neck Exam: Positive: Supple; Negative: JVD, thyromegaly Chest Exam: Positive: Clear to auscultation, Normal air movement Heart Exam: Positive: Rate Normal, Regular Rhythm, Normal S1, Normal S2; Negative: Murmurs, Rubs Telemetry: Positive: No significant arrhythmia Abdomen Exam: Positive: BS Hyperactive, Soft, Tenderness (All over the abdomen), Other (tender to percussion, tympanitis, no guarding but mild rebound present today. ) Extremity Exam: Positive: Normal pulses; Negative: Clubbing, Cyanosis, Edema Skin Exam: Positive: Nl turgor and temperature; Negative: Breakdown, Lesion Neuro Exam: Positive: Normal Speech, Strength at 5/5 X4 ext, Normal Tone Assessment /Plan Assessment 74 year old female with PMH of chronic asthma ulcerative colitis, Migraine, multiple abdominal surgeries presented to [facility] ED with abdominal pain, nausea and constipation for 5 days and vomiting and retching since last night. Her pain was all over the abdomen but maximum in the rihgt lower quadrant was dull aching with intermittent cramps, no radiation, 8/10 in intensity associated to nausea and vomiting. She was found to have SBO. SBO resolving probably due to adhesions. Small bowel follow through was normal. will continue with full liquids as she had a sever bout of abdominal pain with cramps last night when she felt her abdomen is going to burst Needed morphine last night. Chronic asthma will continue home meds. restart theophylline. albuterol prn. Gi prophylaxis with PPI. Migraine / tension headache will give tylenol prn Plan/VTE VTE Prophylaxis Ordered?: Yes VS, I&O, 24H, Fishbone Vital Signs/I&O Vital Signs Date Time Temp Pulse Resp B/P (MAP) Pulse Ox O2 Delivery O2 Flow Rate FiO2 04/20/19 06:00 97.9 73 18 108/66 (80) 96 Room Air I&O- Last 24 Hours up to 6 AM 04/20/19 06:00 Intake Total 1350 ml Output Total 300 ml Balance 1050 ml Laboratory Data 24H LABS Laboratory Tests 2 04/19/19 23:28: Bedside Glucose (Misc Panel) 93 04/20/19 06:18: Bedside Glucose (Misc Panel) 87 04/20/19 06:20: Immature Granulocyte % (Auto) 0.2, Neutrophils (%) (Auto) 63.3, Lymphocytes (%) (Auto) 13.1L, Monocytes (%) (Auto) 10.0H, Eosinophils (%) (Auto) 12.9H, Basophils (%) (Auto) 0.5, Neutrophils # (Auto) 3.7, Lymphocytes # (Auto) 0.8L, Monocytes # (Auto) 0.6, Eosinophils # (Auto) 0.8H, Basophils # (Auto) 0.0, Nucleated Red Blood Cells % (auto) 0.0, Anion Gap 6L, Glomerular Filtration Rate > 60.0, Calcium Level 8.2L 04/20/19 12:06: Bedside Glucose (Misc Panel) 101 CBC/BMP Laboratory Tests 04/20/19 06:20 JACOB DOWNEY MD Apr 20, 2019 12:28
[2019-04-20 14:00] VITALS: BP 121/86
[2019-04-20] MEDS: PANTOPRAZOLE 40MG INJ (PROTONIX) (C9113) IV SCH (17:49)
--- NOTE | 2019-04-20 21:26 | IPN ---
DATE: 04/20/2019 HISTORY: The patient is a consult of Dr. Amador's who was admitted with suggestion of bowel obstruction. She has a past history of ulcerative colitis. She had a small-bowel followthrough study approximately 2-3 days earlier that showed no evidence of small bowel abnormality. She has been advanced to full liquid diet yesterday which she tolerated fairly well but noted some significant crampy type pains in the low midabdomen last night. VITAL SIGNS: Show that she has had a T-max of 99.3. Her pulse is in the 70s with a normal blood pressure. Intake and output shows that she had 1100 mL of oral fluids yesterday with 600 mL of urine output and two voids and a bowel movement. PHYSICAL EXAMINATION: The patient is sitting up in the bed looking fairly comfortable at this point. She is alert and oriented. The abdomen is flat to very mildly protuberant. She has fairly active bowel sounds present. The abdomen is soft, though there is some mild tenderness low in the mid abdomen. LABORATORY STUDIES: Include a white count of 6, hemoglobin of 12, hematocrit of 39 and a platelet count of 232,000. Differential count shows 63% neutrophils, 13% lymphocytes, 10% monocytes and 13% eosinophils. Chemistry profile shows her potassium is 3.1, slightly improved from 3.0 yesterday. Her other electrolytes are not significantly abnormal and her BUN is 3 with a creatinine of 0.6. IMPRESSION: The patient generally tolerated liquids well yesterday, although she had some pain last evening. She is still somewhat tender low in the midline of the abdomen. I reviewed her CT scan from the time of her admission and to me it looks like there may be some inflammation involving her sigmoid colon region. RECOMMENDATIONS: At this point I would continue her on her antibiotics and her current full liquid diet. She has been up ambulating without apparent difficulty. Dr. Amador can reassess her in the morning and consider whether any further imaging studies would be of benefit. LENA
[2019-04-20 22:00] VITALS: BP 120/66
[2019-04-21] MEDS: PIPERACILLIN/TAZOBACTAM SOD 2.25 GM in D5W MINI-BAG PLUS 50 ML IV SCH ×2 (05:20→10:26)
[2019-04-21 05:39] LABS: BASO % 0.8 % (0.0-1.0); EOS # 0.8 10^3/uL (0.0-0.5); EOS % 16.3 % (0.0-3.0); HEMATOCRIT 39.8 % (36.0-47.0); HEMOGLOBIN 12.4 g/dl (12.0-15.5); LYMPH # 1.1 10^3/uL (1.5-5.0); MEAN CORPUSCULAR HEMOGLOBIN 28.1 pg (27.0-33.0); MEAN CORPUSCULAR HGB CONC 31.2 g/dl (32.0-36.5); MEAN CORPUSCULAR VOLUME 90.2 fl (80.0-96.0); MONO # 0.6 10^3/uL (0.0-0.8); NEUTROPHILS # 2.5 10^3/uL (1.5-8.5); NEUTROPHILS % 49.7 % (36.0-66.0); PLATELET COUNT, AUTOMATED 230 10^3/uL (150-450); RED BLOOD COUNT 4.41 10^6/uL (4.00-5.40); WHITE BLOOD COUNT 5.1 10^3/uL (4.0-10.0)
[2019-04-21 06:00] VITALS: BP 142/83
[2019-04-21 06:04] LABS: BLOOD UREA NITROGEN 4 MG/DL (7-18); CALCIUM LEVEL 8.5 MG/DL (8.8-10.2); CARBON DIOXIDE LEVEL 31 MEQ/L (21-32); CHLORIDE LEVEL 106 MEQ/L (98-107); CREATININE FOR GFR 0.68 MG/DL (0.55-1.30); GLOMERULAR FILTRATION RATE > 60.0 (>39); GLUCOSE, FASTING 85 MG/DL (70-100); POTASSIUM SERUM 3.6 MEQ/L (3.5-5.1); SODIUM LEVEL 142 MEQ/L (136-145)
[2019-04-21] MEDS: SYMBICORT 80/4.5MCG INHALER 6GM INH SCH (07:43)
[2019-04-21] MEDS: HEPARIN SOD (PORCINE) 5000 UNITS/ML VIAL SC SCH (09:00)
--- NOTE | 2019-04-21 09:07 | IPNPDOC ---
Text Note Date of Service The patient was seen on 04/21/19. NOTE No acute events over the weekend. Pain is much improved. She is passing flatus and BMS, and tolerating diet. VSSAF NAD abd - soft, minimal TTP lower abdomen only, no rebound, no ventral hernias labs - below A) 74y/o female with history of UC and recent partial vs. complete SBO on CT likely secondary to inflamamtion from the sigmoid P) reg diet ambulate dc home recommend short course of steroids and abx for colitis follow up with Dr. Swathi Amador DO VS,Fishbone, I+O VS, Fishbone, I+O Laboratory Tests 04/21/19 05:22 Vital Signs Date Time Temp Pulse Resp B/P (MAP) Pulse Ox O2 Delivery O2 Flow Rate FiO2 04/21/19 06:00 99.0 67 17 142/83 (102) 93 04/20/19 22:00 Room Air I&O- Last 24 Hours up to 6 AM 04/21/19 06:00 Intake Total 1310 ml Output Total 200 ml Balance 1110 ml SOO AMADOR DO Apr 21, 2019 09:07
[2019-04-21] MEDS: THEOPHYLLINE 400 MG PO SCH (09:17)
[2019-04-21] MEDS ORDERED: predniSONE 20 MG TAB PO SCH (09:45)
[2019-04-21] MEDS ORDERED: CIPR500T3 PO (09:50)
[2019-04-21] MEDS ORDERED: PANT-23 PO (09:50)
[2019-04-21] MEDS ORDERED: ACET-861 PO (09:50)
[2019-04-21] MEDS ORDERED: PRED10TA2 PO (09:50)
[2019-04-21] MEDS ORDERED: FLAG500T PO (09:50)
--- NOTE | 2019-04-21 11:10 | DS.PDOC ---
Discharge Summary General Date of Admission Apr 16, 2019 at 11:47 Date of Discharge 04/21/19 Discharge Summary PROCEDURES PERFORMED DURING STAY: [None]. DISCHARGE DIAGNOSES: Small bowel obstruction due to inflammation Colitis infective Vs exacerbation of ulcerative colitis Asthma exacerbation SECONDARY DIAGNOSIS: Chronic asthma, ulcerative colitis, Migraine, multiple abdominal surgeries COMPLICATIONS/CHIEF COMPLAINT: Small Bowel Obstruction. HISTORY OF PRESENT ILLNESS: See history and physical HOSPITAL COURSE: 74 year old female with PMH of chronic asthma, ulcerative colitis, Migraine, multiple abdominal surgeries presented to the ED with abdominal pain, nausea and constipation for 5 days and vomiting and retching since last night. Her pain was all over the abdomen but maximum in the rihgt l ower quadrant was dull aching with intermittent cramps, no radiation, 8/10 in intensity associated to nausea and vomiting. She was found to have SBO. SBO resolved with conservative management. probably due to inflammation from Ulcerative colitis vs infective colitis. Small bowel follow through was normal. reg diet low residue will give a course of steroids. follow up with Dr Echevarria. Chronic asthma with mild exacerbation will give short course of steroids. will continue home meds, theophylline. albuterol prn. Gi prophylaxis with PPI. Migraine / tension headache tylenol prn DISCHARGE MEDICATIONS: Please see below. ALLERGIES: Please see below. PHYSICAL EXAMINATION ON DISCHARGE: VITAL SIGNS: Please see below. General Exam: Positive: Alert, Cooperative, Mild Distress Eye Exam: Positive: PERRLA, Conjunctiva & lids normal, EOMI; Negative: Sclera icteric ENT Exam: Positive: Atraumatic, Mucous membr. moist/pink, Pharynx Normal Neck Exam: Positive: Supple; Negative: JVD, thyromegaly Chest Exam: Positive: Clear to auscultation, Normal air movement Heart Exam: Positive: Rate Normal, Regular Rhythm, Normal S1, Normal S2; Negative: Murmurs, Rubs Telemetry: Positive: No significant arrhythmia Abdomen Exam: Positive: BS Hyperactive, Soft, Tenderness (All over the ab domen), Other (tender to percussion, tympanitis, no guarding but mild rebound present today. ) Extremity Exam: Positive: Normal pulses; Negative: Clubbing, Cyanosis, Edema Skin Exam: Positive: Nl turgor and temperature; Negative: Breakdown, Lesion Neuro Exam: Positive: Normal Speech, Strength at 5/5 X4 ext, Normal Tone LABORATORY DATA: Please see below. ACTIVITY: [As tolerated]. DIET: Soft, low residue DISCHARGE PLAN: Home DISPOSITION: . DISCHARGE INSTRUCTIONS: Follow Up PMD in [address] Echevarria in 3 to 4 weeks. DISCHARGE CONDITION: [Stable]. TIME SPENT ON DISCHARGE: 35 minutes. Vital Signs/I&Os Vital Signs Date Time Temp Pulse Resp B/P (MAP) Pulse Ox O2 Delivery O2 Flow Rate FiO2 04/21/19 06:00 99.0 67 17 142/83 (102) 93 04/20/19 22:00 Room Air I&O- Last 24 Hours up to 6 AM 04/21/19 06:00 Intake Total 1310 ml Output Total 200 ml Balance 1110 ml Laboratory Data Labs 24H Laboratory Tests 2 04/20/19 12:06: Bedside Glucose (Misc Panel) 101 04/21/19 05:22: Immature Granulocyte % (Auto) 0.2, Neutrophils (%) (Auto) 49.7, Lymphocytes (%) (Auto) 22.0L, Monocytes (%) (Auto) 11.0H, Eosinophils (%) (Auto) 16.3H, Basophils (%) (Auto) 0.8, Neutrophils # (Auto) 2.5, Lymphocytes # (Auto) 1.1L, Monocytes # (Auto) 0.6, Eosinophils # (Auto) 0.8H, Basophils # (Auto) 0.0, Nucleated Red Blood Cells % (auto) 0.0, Anion Gap 5L, Glomerular Filtration Rate > 60.0, Calcium Level 8.5L CBC/BMP Laboratory Tests 04/21/19 05:22 FSBS Laboratory Tests Test 04/20/19 12:06 Range/Units Bedside Glucose (Misc Panel) 101 83-110 MG/DL Discharge Medications Scheduled Budesonide/Formoterol (Symbicort 80-4.5 Mcg Inhaler) 6.9 Gm Hfa.aer.ad, 1 PUFF INH BID, (Reported) Ciprofloxacin HCl (Ciprofloxacin HCl) 500 Mg Tablet, 500 MG PO BID Ergocalciferol (Vitamin D2) (Vitamin D2) 50,000 Unit Cap, 50,000 UNIT PO 1XWK, (Reported) TAKES ON SATURDAYS Metronidazole (Flagyl) 500 Mg Tablet, 500 MG PO Q8H FOR 10 DAYS [place]-3 Fatty Acids/Fish Oil (Fish Oil 1,000 mg Capsule) 1 Each Capsule, 1,000 MG PO DAILY, (Reported) Pantoprazole Sodium (Pantoprazole Sodium) 40 Mg Tablet.dr, 1 TAB PO DAILY Prednisone (Prednisone) 10 Mg Tablet, 10 MG PO TAPER Take 4 tabs daily x 2 days, then 3 tabs daily x 3 days, then 2 tabs daily x 3 days, then 1 tab daily x 3 days and stop Risedronate Sodium (Risedronate Sodium) 35 Mg Tab, 70 MG PO 1XWK, (Reported) TAKES ON SATURDAYS Theophylline Anhydrous (Theophylline) 400 Mg Tabcr, 400 MG PO DAILY, (Reported) TAKES AT 0700 Scheduled PRN Acetaminophen (Acetaminophen) 500 Mg Tablet, 1,000 MG PO TIDP PRN for ABDOMINAL PAIN Albuterol Sulfate (Proair Hfa) 108 Mcg/Act Aer, 2 PUFF INH Q4H PRN for SOB/WHEEZING, (Reported) Sumatriptan Succinate (Sumatriptan Succinate) 25 Mg Tab, 25 MG PO BID PRN for MIGRAINE, (Reported) Allergies Coded Allergies: Influenza Virus Vaccines (Verified Allergy, Intermediate, swelling of arm x 2 when receiving injectable vaccine, 04/16/19) verified with pt on admission 04/16/19 bacitracin (Verified Adverse Reaction, Unknown, 04/16/19) PATIENT STATES IT DOESN'T WORK ON HER SO SHE MUST BE ALLERGIC neomycin (Verified Adverse Reaction, Unknown, 04/16/19) PATIENT STATES IT DOESN'T WORK ON HER SO SHE MUST BE ALLERGIC polymyxin B (Verified Adverse Reaction, Unknown, 04/16/19) PATIENT STATES IT DOESN'T WORK ON HER SO SHE MUST BE ALLERGIC JACOB DOWNEY MD Apr 21, 2019 11:10
== END 2019-04-21 13:41 | disposition home or self-care (01) | DRG 386 ==
LOC: M ED 03:37 → M ED INP 11:47 → M MS4PR 12:35 → UNDODISIN 04-17 14:15 → M MSPAV 04-17 14:27
PROVIDERS: ADMIT Internal Medicine Nephrology; ATTEND Internal Medicine Nephrology
DX: K51.912 Ulcerative colitis, unspecified with intestinal obstruction (principal); J45.901 Unspecified asthma with (acute) exacerbation; G43.909 Migraine, unspecified, not intractable, without status migrainosus; Z79.899 Other long term (current) drug therapy; Z88.8 Allergy status to other drugs, medicaments and biological substances; Z88.7 Allergy status to serum and vaccine; K57.30 Diverticulosis of large intestine without perforation or abscess without bleeding

== ENCOUNTER 2019-05-25 04:10 | Inpatient (IN) | payer MEDICARE, BC, OTHER ==
[~2019-05-25] VITALS: Ht 162.6 cm; Wt 47.5 kg
[~2019-05-25 04:10] MED LIST changes: +ACET-861 PO; +CIPR500T3 PO; +FISH1000 PO; +PANT-23 PO; +PRED10TA2 PO; +SYMB80INH INH
[2019-05-25] MEDS ORDERED: NS 500 ML IV ONE (04:45)
[2019-05-25] MEDS ORDERED: METOCLOPRAMIDE INJ 10MG/2ML VIAL (J2765) IV ONE (04:45)
[2019-05-25] MEDS ORDERED: MORPHINE 4 MG/ML 1ML VIAL/SYRINGE (J2270) IV ONE ×2 (04:45→06:15)
[2019-05-25 04:58] LABS: BASO % 0.3 % (0.0-1.0); EOS # 0.1 10^3/uL (0.0-0.5); EOS % 1.6 % (0.0-3.0); HEMATOCRIT 42.7 % (36.0-47.0); HEMOGLOBIN 13.5 g/dl (12.0-15.5); LYMPH # 0.6 10^3/uL (1.5-5.0); LYMPH % 6.8 % (24.0-44.0); MEAN CORPUSCULAR HEMOGLOBIN 28.2 pg (27.0-33.0); MEAN CORPUSCULAR HGB CONC 31.6 g/dl (32.0-36.5); MEAN CORPUSCULAR VOLUME 89.1 fl (80.0-96.0); MONO # 0.4 10^3/uL (0.0-0.8); MONO % 4.2 % (0.0-5.0); NEUTROPHILS # 7.5 10^3/uL (1.5-8.5); NEUTROPHILS % 86.8 % (36.0-66.0); PLATELET COUNT, AUTOMATED 330 10^3/uL (150-450); RED BLOOD COUNT 4.79 10^6/uL (4.00-5.40); WHITE BLOOD COUNT 8.7 10^3/uL (4.0-10.0)
[2019-05-25 05:10] LABS: ALBUMIN 3.5 GM/DL (3.2-5.2); ALT/SGPT 15 U/L (12-78); BILIRUBIN,DIRECT 0.2 MG/DL (0.0-0.2); BILIRUBIN,TOTAL 0.8 MG/DL (0.2-1.0); BLOOD UREA NITROGEN 8 MG/DL (7-18); CALCIUM LEVEL 9.1 MG/DL (8.8-10.2); CARBON DIOXIDE LEVEL 27 MEQ/L (21-32); CHLORIDE LEVEL 105 MEQ/L (98-107); CREATININE FOR GFR 0.75 MG/DL (0.55-1.30); GLOMERULAR FILTRATION RATE > 60.0 (>39); GLUCOSE, FASTING 175 MG/DL (70-100); LIPASE 66 U/L (73-393); POTASSIUM SERUM 3.2 MEQ/L (3.5-5.1); SODIUM LEVEL 143 MEQ/L (136-145); TOTAL PROTEIN 6.7 GM/DL (6.4-8.2)
[2019-05-25 05:18] LABS: INR 1.08; PROTHROMBIN TIME 13.7 SECONDS (11.8-14.0)
[2019-05-25 05:19] LABS: PARTIAL THROMBOPLASTIN TIME 26.4 SECONDS (25.0-38.4)
[2019-05-25] MEDS ORDERED: ISOVUE-370 76% 100ML VIAL (Q9967) As Ordered ONE (05:42)
[2019-05-25] MEDS ORDERED: LORazepam 2 MG/ML VIAL (J2060) IV STA (06:08)
--- NOTE | 2019-05-25 06:23 | REPVR ---
PROCEDURE INFORMATION: Exam: CT Abdomen And Pelvis With Contrast Exam date and time: 05/25/2019 5:48 AM Age: 74 years old Clinical indication: Abdominal pain; Generalized TECHNIQUE: Imaging protocol: Computed tomography of the abdomen and pelvis with intravenous contrast. Radiation optimization: All CT scans at this facility use at least one of these dose optimization techniques: automated exposure control; mA and/or kV adjustment per patient size (includes targeted exams where dose is matched to clinical indication); or iterative reconstruction. Contrast material: ISOVUE 370; Contrast volume: 90 ml; Contrast route: IV; COMPARISON: CT ABD/PEL W/IV ORAL CONTRAS 04/16/2019 7:37 AM FINDINGS: Lungs: Centrilobular and paraseptal emphysema. Dependent atelectasis at the right base. 5 mm pulmonary nodule in the right middle lobe, stable. Liver: Low attenuation right hepatic lobe lesion demonstrating peripheral nodular enhancement probably represents a hemangioma. Recommend dedicated liver CT or MRI for confirmation. Interval development of several indeterminate hypoattenuating subcapsular right hepatic lobe probably solid lesions are noted. These measure up to 1 cm in diameter. There is focal scalloping of the liver contour over the dome of the liver. Gallbladder and bile ducts: Status post cholecystectomy. Intra-and extrahepatic biliary ductal dilatation to the level of the ampulla. No obstructing calculus is appreciated. Pancreas: Several subcentimeter indeterminate low-attenuation pancreatic lesions. No ductal dilation. Spleen: Splenomegaly. Adrenals: Normal. No mass. Kidneys and ureters: Left renal cyst. Stomach and bowel: Small bowel obstruction with transition point in the right pelvis best appreciated on image #108. Appendix: No evidence of appendicitis. Intraperitoneal space: Small complex ascites and evidence of omental caking. Vasculature: Atherosclerotic disease of the abdominal aorta. Lymph nodes: Unremarkable. No enlarged lymph nodes. Bladder: Unremarkable as visualized. Reproductive: Status post hysterectomy. Bones/joints: Scoliosis. Degenerative changes in the left hip. Multilevel degenerative disc disease of the lumbar spine. Soft tissues: Unremarkable. IMPRESSION: 1. Small bowel obstruction with transition point in the right pelvis best appreciated on image #108. 2. Small complex ascites with evidence of peritoneal carcinomatosis and caking. 3. Interval development of several indeterminate hypoattenuating subcapsular right hepatic lobe probably solid lesions are noted. These measure up to 1 cm in diameter. Appearance is concerning for liver metastasis. Electronically signed by: Balaji Rivera On 05/25/2019 06:23:23 AM
[2019-05-25] MEDS ORDERED: VITA50005 PO (07:40)
[2019-05-25] MEDS ORDERED: ALBUTEROL 90 MCG/ACT 8GM HFA INHALER INH PRN (08:45)
[2019-05-25] MEDS ORDERED: MORPHINE 2 MG/ML 1ML VIAL (J2270) IV PRN (08:45)
--- NOTE | 2019-05-25 08:58 | HPEPDOC ---
General Date of Admission 05/25/19 Date of Service: May 25, 2019 Chief Complaint The patient is a 74-year-old female admitted with a reason for visit of Lower Abd Pain. Source: Patient Exam Limitations: No limitations Timing/Duration: Other (today's) Severity: Moderate Associated Symptoms: Nausea, Vomiting, Other (abdominal pain) History of Present Illness This is a 74 years old white female with past medical history of asthma, ulcerative colitis, multiple abdominal surgeries, diverticulosis, was recently admitted to this hospital on April 16 and discharged on April 21 with the diagnosis of SBO which has resolved spontaneously. Patient this time has not been feeling good since last 2 days, complaining of abdominal pain which was generalized in nature nature, nonradiating, not associated with any other symptoms, symptoms are not worsened or improved with any position,medication of food, but since last night she started having frequent vomiting and decided come to ED she is being admitted with a recurrent SBO . Note: Patient complaining of weight loss of 18 pounds since March and also loss of appetite since March. Home Medications Scheduled Budesonide/Formoterol (Symbicort 80-4.5 Mcg Inhaler) 6.9 Gm Hfa.aer.ad, 1 PUFF INH BID, (Reported) Ergocalciferol (Vitamin D2) (Vitamin D2) 50,000 Units Cap, 50,000 UNIT PO 1XWK, (Reported) SATURDAYS Risedronate Sodium (Risedronate Sodium) 35 Mg Tab, 70 MG PO 1XWK, (Reported) TAKES ON SATURDAYS Theophylline Anhydrous (Theophylline) 400 Mg Tabcr, 400 MG PO DAILY, (Reported) TAKES AT 0700 Scheduled PRN Albuterol Sulfate (Proair Hfa) 108 Mcg/Act Aer, 2 PUFF INH Q4H PRN for SOB/WHEEZING, (Reported) Sumatriptan Succinate (Sumatriptan Succinate) 25 Mg Tab, 25 MG PO BID PRN for MIGRAINE, (Reported) Allergies Coded Allergies: Influenza Virus Vaccines (Verified Allergy, Intermediate, swelling of arm x 2 when receiving injectable vaccine, 04/16/19) verified with pt on admission 04/16/19 bacitracin (Verified Adverse Reaction, Unknown, 04/16/19) PATIENT STATES IT DOESN'T WORK ON HER SO SHE MUST BE ALLERGIC neomycin (Verified Adverse Reaction, Unknown, 04/16/19) PATIENT STATES IT DOESN'T WORK ON HER SO SHE MUST BE ALLERGIC polymyxin B (Verified Adverse Reaction, Unknown, 04/16/19) PATIENT STATES IT DOESN'T WORK ON HER SO SHE MUST BE ALLERGIC Past Medical History Medical History Asthma, ulcerative colitis, multiple abdominal surgeries, diverticulosis Surgical History Appendectomy, cholecystectomy, bilateral cataract surgery, hysterectomy and bladder sling Family History History of colon cancer on mother's side Social History * Smoker: former Smoker Alcohol: Denies Drugs: denies A-FIB/CHADSVASC A-FIB History Current/History of A-Fib/PAF?: No Review of Systems Constitutional: Reports: Chills; Denies: Fever, Malaise, Night Sweats, Weakness, Fatigue, Weight Loss, Lethargy, Other Eyes: Denies: Pain, Vision change, Conjunctivae inflammation, Eyelid inflammation, Redness, Other ENT: Denies: Head Aches, Ear Pain, Dysphagia, Sinus Congestion, Post Nasal Drip, Sore Throat, Epistaxis, Other Symptoms Skin: Denies: Rash, Lesions, Jaundice, Bruising, Itching, Dry, Breakdown, Nail Changes, Other Pulmonary: Denies: Dyspnea, Cough, Pleuritic Chest Pain, Other Symptoms Cardiovascular: Denies: Chest Pain, Palpitations, Orthopnea, Paroxysmal Noc. Dyspnea, Edema, Lt Headedness, Other Symptoms Gastrointestinal: Reports: Nausea, Vomiting, Abdominal Pain Genitourinary: Denies: Dysuria, Frequency, Incontinence, Hematuria, Retention, Other Symptoms Hematologic: Denies: Bruising, Bleeding Excessively, Petecchia, Purpura, Enlarged Lymph Nodes, Other Hematologic Endocrine: Denies: Polydipsia, Polyphagia, Polyuria, Heat Intolerance, Cold Intolerance, Other Endocrine Sx Musculoskeletal: Denies: Neck Pain, Back Pain, Shoulder Pain, Arm Pain, Hand Pain, Leg Pain, Foot Pain, Joint Pain, Muscle Pain, Spasms, Other Symptoms Neurological: Denies: Weakness, Numbness, Incoordination, Change in speech, Confusion, Seizures, Other Symptoms Psych: Denies: Mood Normal, Anxiety, Depression, Memory Issues, Thoughts of Self Harm, Anger, Thoughts of Harming Other, Other Psych Physical Examination General Exam: Positive: Alert, Cooperative Eye Exam: Positive: PERRLA, Conjunctiva & lids normal ENT Exam: Positive: Atraumatic Neck Exam: Positive: Supple Chest Exam: Positive: Clear to auscultation, Normal air movement Heart Exam: Positive: Rate Normal, Normal S1, Normal S2 Abdomen Exam: Positive: BS Hyperactive, Soft, Tenderness Extremity Exam: Positive: Normal pulses Skin Exam: Positive: Nl turgor and temperature Neuro Exam: Positive: Strength at 5/5 X4 ext, Sensation Intact, Cranial Nerves 3-12 NL Psych Exam: Positive: Mood NL, Oriented x 3 Vital Signs Vital Signs Date Time Temp Pulse Resp B/P (MAP) Pulse Ox O2 Delivery O2 Flow Rate FiO2 05/25/19 07:54 85 95 05/25/19 07:24 18 110/68 (82) Room Air 05/25/19 04:18 97.3 Laboratory Data Labs 24H Laboratory Tests 2 05/25/19 04:45: Anion Gap 11, Glomerular Filtration Rate > 60.0, Calcium Level 9.1, Total Bilirubin 0.8, Direct Bilirubin 0.2, Aspartate Amino Transf (AST/SGOT) 12, Alanine Aminotransferase (ALT/SGPT) 15, Alkaline Phosphatase 82, Total Protein 6.7, Albumin 3.5, Albumin/Globulin Ratio 1.09, Lipase 66L 05/25/19 05:02: Immature Granulocyte % (Auto) 0.3, Neutrophils (%) (Auto) 86.8H, Lymphocytes (%) (Auto) 6.8L, Monocytes (%) (Auto) 4.2, Eosinophils (%) (Auto) 1.6, Basophils (%) (Auto) 0.3, Neutrophils # (Auto) 7.5, Lymphocytes # (Auto) 0.6L, Monocytes # (Auto) 0.4, Eosinophils # (Auto) 0.1, Basophils # (Auto) 0.0, Nucleated Red Bl ood Cells % (auto) 0.0, Prothrombin Time 13.7, Prothromb Time International Ratio 1.08, Activated Partial Thromboplast Time 26.4, Lactic Acid Level 1.4 CBC/BMP Laboratory Tests 05/25/19 04:45 05/25/19 05:02 Problems (1) SBO (small bowel obstruction) Status: Acute Problem Text: 74 years old, frail white female with past medical history of asthma, ulcerative colitis, multiple abdominal surgeries recently admitted and discharged with SBO. Presents again with abdominal pain, nausea, vomiting and is being admitted with the diagnosis of recurrent SBO. Patient also complaining of weight loss of 18 pounds since November, so at this point, she probably will need workup to rule out malignancy. Patient's CAT scan of the abdomen and pelvis is consistent with:1. Small bowel obstruction with transition point in the right pelvis best appreciated on image #108. 2. Small complex ascites with evidence of peritoneal carcinomatosis and caking. 3. Interval development of several indeterminate hypoattenuating subcapsular right hepatic lobe probably solid lesions are noted. These measure up to 1 cm in diameter. Appearance is concerning for liver metastasis. Patient. WBC count 8.7, hemoglobin 13.5, platelets 339, electrolytes are normal except potassium is slightly low. 3.2, BUN/creatinine is within normal range. Lipase is 66, lactic acid 1.4 Dr. Sherwood was called from ED and he will see the patient on consultation Admit patient to [facility] floor IV fluids normal saline 70 mL per hour Continue NG tube with intermittent wall suction Morphine sulfate 2 mg IV every 4 hours when necessary for pain Zofran 4 mg IV every 4 hours when necessary for nausea, vomiting Hold all other by mouth meds Continue her asthma inhalers Nothing by mouth DVT prophylaxis with bilateral SCDs (2) Diverticulosis Status: Chronic Problem Text: Nothing by mouth Continue IV fluids (3) Ulcerative (chronic) enterocolitis Status: Chronic Problem Text: As per patient, she had a multiple colonoscopy done in past which were all essentially within normal range . She is on not any meds for ulcerative colitis (4) Asthma Status: Chronic Problem Text: Continue home meds Plan / VTE VTE Prophylaxis Ordered?: Yes EBENEZER SANDS MD May 25, 2019 08:58
[2019-05-25] MEDS: SYMBICORT 80/4.5MCG INHALER 6GM INH SCH ×2 (09:00→18:34)
[2019-05-25 09:39] VITALS: BP 123/82
[2019-05-25] MEDS: NS 1,000 ML IV SCH ×2 (10:17→22:51)
[2019-05-25 14:00] VITALS: BP 128/76
[2019-05-25 22:00] VITALS: BP 123/80
[2019-05-26 05:40] LABS: HEMATOCRIT 39.1 % (36.0-47.0); HEMOGLOBIN 11.9 g/dl (12.0-15.5); MEAN CORPUSCULAR HEMOGLOBIN 27.4 pg (27.0-33.0); MEAN CORPUSCULAR HGB CONC 30.4 g/dl (32.0-36.5); MEAN CORPUSCULAR VOLUME 89.9 fl (80.0-96.0); PLATELET COUNT, AUTOMATED 299 10^3/uL (150-450); RED BLOOD COUNT 4.35 10^6/uL (4.00-5.40); WHITE BLOOD COUNT 5.1 10^3/uL (4.0-10.0)
[2019-05-26 06:00] VITALS: BP 116/68
[2019-05-26 06:12] LABS: ALBUMIN 2.5 GM/DL (3.2-5.2); ALT/SGPT 9 U/L (12-78); BILIRUBIN,TOTAL 0.6 MG/DL (0.2-1.0); BLOOD UREA NITROGEN 9 MG/DL (7-18); CALCIUM LEVEL 7.9 MG/DL (8.8-10.2); CARBON DIOXIDE LEVEL 28 MEQ/L (21-32); CHLORIDE LEVEL 111 MEQ/L (98-107); CREATININE FOR GFR 0.62 MG/DL (0.55-1.30); GLOMERULAR FILTRATION RATE > 60.0 (>39); GLUCOSE, FASTING 88 MG/DL (70-100); POTASSIUM SERUM 3.3 MEQ/L (3.5-5.1); SODIUM LEVEL 144 MEQ/L (136-145); TOTAL PROTEIN 5.5 GM/DL (6.4-8.2)
[2019-05-26] MEDS: SYMBICORT 80/4.5MCG INHALER 6GM INH SCH ×2 (07:20→19:55)
[2019-05-26] MEDS: KCL 10MEQ/100ML SWI (KRUN) 10 MEQ in IV 1 EA IV SCH ×2 (08:35→11:36)
--- NOTE | 2019-05-26 10:39 | IPNPDOC ---
Subjective Date Seen The patient was seen on 05/26/19. Subjective Chief Complaint/HPI Patient feels better. He still has some abdominal pain. No new complaints Constitutional: Denies: Chills, Fever, Malaise, Night Sweats, Weakness, Fatigue, Weight Loss, Lethargy, Other Eyes: Denies: Pain, Vision change, Conjunctivae inflammation, Eyelid inflammation, Redness, Other Pulmonary: Denies: Dyspnea, Cough, Pleuritic Chest Pain, Other Symptoms Cardiovascular: Denies: Chest Pain, Palpitations, Orthopnea, Paroxysmal Noc. Dyspnea, Edema, Lt Headedness, Other Symptoms Gastrointestinal: Reports: Abdominal Pain Hematologic: Denies: Bruising, Bleeding Excessively, Petecchia, Purpura, Enlarged Lymph Nodes, Other Hematologic Musculoskeletal: Denies: Neck Pain, Back Pain, Shoulder Pain, Arm Pain, Hand Pain, Leg Pain, Foot Pain, Joint Pain, Muscle Pain, Spasms, Other Symptoms Neurological: Denies: Weakness, Numbness, Incoordination, Change in speech, Confusion, Seizures, Other Symptoms Objective Physical Examination ENT Exam: Positive: Atraumatic Neck Exam: Positive: Supple Chest Exam: Positive: Clear to auscultation, Normal air movement Heart Exam: Positive: Rate Normal, Normal S1, Normal S2 Abdomen Exam: Positive: BS Hyperactive, Soft, Tenderness Extremity Exam: Positive: Normal pulses Skin Exam: Positive: Nl turgor and temperature Neuro Exam: Positive: Strength at 5/5 X4 ext, Sensation Intact, Cranial Nerves 3-12 NL Psych Exam: Positive: Mood NL, Oriented x 3 Assessment /Plan Problems (1) SBO (small bowel obstruction) Status: Acute Problem Text: Patient is nothing by mouth Continue IV fluids NG tube in place Surgical consult is awaited Further, as per surgical recommendations Will possibly need workup for metastatic disease. Once medically stable, including possible possible liver biopsy and paracentesis Potassium supplemented.for hypokalemia, repeat levels in a.m. (2) Ulcerative (chronic) enterocolitis Status: Chronic Problem Text: . On no home meds Continue present care (3) Asthma Status: Chronic Problem Text: Continue home meds Plan/VTE VTE Prophylaxis Ordered?: Yes VS, I&O, 24H, Fishbone Vital Signs/I&O Vital Signs Date Time Temp Pulse Resp B/P (MAP) Pulse Ox O2 Delivery O2 Flow Rate FiO2 05/26/19 06:00 99.3 57 18 116/68 (84) 96 Room Air I&O- Last 24 Hours up to 6 AM 05/26/19 06:00 Intake Total 2100 ml Output Total 710 ml Balance 1390 ml Laboratory Data 24H LABS Laboratory Tests 2 05/26/19 05:14: Nucleated Red Blood Cells % (auto) 0.0, Anion Gap 5L, Glomerular Filtration Rate > 60.0, Calcium Level 7.9L, Total Bilirubin 0.6, Aspartate Amino Transf (AST/SGOT) 12, Alanine Aminotransferase (ALT/SGPT) 9L, Alkaline Phosphatase 53, Total Protein 5.5L, Albumin 2.5#L, Albumin/Globulin Ratio 0.83L CBC/BMP Laboratory Tests 05/26/19 05:14 EBENEZER SANDS MD May 26, 2019 10:39
--- NOTE | 2019-05-26 10:41 | IPNPDOC ---
Subjective Date Seen The patient was seen on 05/26/19. Subjective Chief Complaint/HPI Patient is currently stable. Decreased abdominal pain noted, NG tube in place General: Reports: Chills, Fatigue; Denies: ROS Unobtainable, Night Sweats, Malaise, Normal Appetite, Other Symptoms Constitutional: Denies: Chills, Fever, Malaise, Night Sweats, Weakness, Fatigue, Weight Loss, Lethargy, Other Skin: Denies: Rash, Lesions, Jaundice, Bruising, Itching, Dry, Breakdown, Nail Changes, Other Pulmonary: Denies: Dyspnea, Cough, Pleuritic Chest Pain, Other Symptoms Cardiovascular: Denies: Chest Pain, Palpitations, Orthopnea, Paroxysmal Noc. Dyspnea, Edema, Lt Headedness, Other Symptoms Gastrointestinal: Reports: Other Symptoms (discharge from G-tube orifice); Denies: Nausea, Vomiting, Abdominal Pain, Diarrhea, Constipation, Melena, Hematochezia Endocrine: Denies: Polydipsia, Polyphagia, Polyuria, Heat Intolerance, Cold Intolerance, Other Endocrine Sx Musculoskeletal: Denies: Neck Pain, Back Pain, Shoulder Pain, Arm Pain, Hand Pain, Leg Pain, Foot Pain, Joint Pain, Muscle Pain, Spasms, Other Symptoms Objective Physical Examination General Exam: Positive: Alert, Cooperative ENT Exam: Positive: Atraumatic Neck Exam: Positive: Supple Chest Exam: Positive: Clear to auscultation, Normal air movement Heart Exam: Positive: Rate Normal, Normal S1, Normal S2 Abdomen Exam: Positive: BS Hyperactive, Soft, Tenderness Extremity Exam: Positive: Normal pulses Skin Exam: Positive: Nl turgor and temperature Neuro Exam: Positive: Strength at 5/5 X4 ext, Sensation Intact, Cranial Nerves 3-12 NL Psych Exam: Positive: Mood NL, Oriented x 3 Assessment /Plan Problems (1) SBO (small bowel obstruction) Status: Acute Problem Text: Patient is nothing by mouth Continue IV fluids NG tube in place Surgical consult is awaited Further, as per surgical recommendations Will possibly need workup for metastatic disease. Once medically stable, including possible possible liver biopsy and paracentesis Potassium supplemented.for hypokalemia, repeat levels in a.m. (2) Ulcerative (chronic) enterocolitis Status: Chronic Problem Text: . On no home meds Continue present care (3) Asthma Status: Chronic Problem Text: Continue home meds Plan/VTE VTE Prophylaxis Ordered?: Yes VS, I&O, 24H, Fishbone Vital Signs/I&O Vital Signs Date Time Temp Pulse Resp B/P (MAP) Pulse Ox O2 Delivery O2 Flow Rate FiO2 05/26/19 06:00 99.3 57 18 116/68 (84) 96 Room Air I&O- Last 24 Hours up to 6 AM 05/26/19 06:00 Intake Total 2100 ml Output Total 710 ml Balance 1390 ml Laboratory Data 24H LABS Laboratory Tests 2 05/26/19 05:14: Nucleated Red Blood Cells % (auto) 0.0, Anion Gap 5L, Glomerular Filtration Rate > 60.0, Calcium Level 7.9L, Total Bilirubin 0.6, Aspartate Amino Transf (AST/SGOT) 12, Alanine Aminotransferase (ALT/SGPT) 9L, Alkaline Phosphatase 53, Total Protein 5.5L, Albumin 2.5#L, Albumin/Globulin Ratio 0.83L CBC/BMP Laboratory Tests 05/26/19 05:14 EBENEZER SANDS MD May 26, 2019 10:41
--- NOTE | 2019-05-26 10:57 | REP ---
KUB ABDOMEN AND PELVIS: Two KUB films of abdomen/pelvis performed. Nasogastric tube is seen with sideport in the stomach. A few air-filled small bowel loops in the left upper quadrant do not appear to be significantly dilated. There are mildly dilated small bowel loops in the lower abdomen. Very small amount of scattered air is seen throughout the colon. Metallic clips are seen in the right upper quadrant. IMPRESSION: Mild dilatation of small bowel loops in the lower abdomen and pelvis. Electronically Signed by Randy Neumann MD 05/26/2019 06:05 P
--- NOTE | 2019-05-26 10:58 | REP ---
CHEST: Single view. There is no evidence of acute infiltrate. No pleural effusion is seen. The heart is normal in size. The mediastinal silhouette is unremarkable. The visualized osseous structures are intact. Nasogastric tube is seen with sideport in the stomach. IMPRESSION: No acute pulmonary disease. Electronically Signed by Randy Neumann MD 05/26/2019 06:05 P
[2019-05-26 14:00] VITALS: BP 132/69
[2019-05-26] MEDS: ONDANSETRON 4MG/2ML VIAL (J2405) IV PRN (14:26)
[2019-05-26] MEDS: NS 1,000 ML IV SCH (14:26)
[2019-05-26] MEDS ORDERED: ACETAMINOPHEN *IV* 1,000 MG in IV 1 EA IV ONE (18:30)
--- NOTE | 2019-05-26 19:56 | CR ---
DATE OF CONSULTATION: 05/25/2019 REASON FOR CONSULTATION: Small bowel obstruction. HISTORY OF PRESENT ILLNESS: The patient is a 74-year-old woman who has had several abdominal procedures. She has had an appendectomy, cholecystectomy, hysterectomy, and a bladder sling type of procedure. In early April, she was admitted to the hospital with a several-day history of abdominal pain with nausea, vomiting and constipation. She underwent evaluation and was found to have a CT showing dilated small-bowel loops with a transition point noted low in the right lower quadrant of the pelvis. She was treated non operatively with a nasogastric tube and intravenous hydration. Her problems gradually resolved and she was discharged home after about 5 days in the hospital. She does have a history of ulcerative colitis and this has been relatively inactive. She has done fairly well over the past month. She reports that she feels like she has a pressure in her lower abdomen fairly persistently but has not had any real pain. She has been having bowel movements. She reports that her appetite has been somewhat poor. She does report that she has lost approximately 18 pounds over the last 2 months or so. She reports that she has been having some abdominal discomfort, particularly in the lower abdomen over the last several days. Last night she had started with some vomiting and presented to the emergency department for evaluation again. In the emergency department, she was afebrile. She had laboratory studies that showed a white blood cell count of 9 with a hemoglobin of 14, hematocrit of 43 and platelet count of 330,000. Her neutrophil count was 87% with 7% lymphocytes. Chemistry profile showed that her potassium was slightly low at 3.2 and was otherwise unremarkable. A CT scan of the abdomen and pelvis was obtained and was read by one of the covering radiologists. This was interpreted as showing some free fluid within the abdomen. The radiologist felt there were some hypoattenuating subcapsular right hepatic lobe, probably solid lesions, which could be consistent with metastatic disease. Her gallbladder was surgically absent and her bile ducts were dilated. There were several small sub centimeter indeterminate low-attenuation pancreatic lesions. There was evidence for a small bowel obstruction with transition point in the right pelvis. The radiologist also felt that there was evidence for "omental caking." His impression was therefore that there was a bowel obstruction, as well as some changes worrisome for carcinomatosis. She was admitted by the hospitalist and I am now consulted to evaluate the patient. MEDICATIONS: The patient's home medications include: - albuterol inhaler - Symbicort inhaler - vitamin B2 - risedronate sodium - sumatriptan as needed - theophylline daily ALLERGIES: Reported to INFLUENZA VACCINE, BACITRACIN, NEOMYCIN, POLYMYXIN B. PAST SURGICAL HISTORY: Significant for an open appendectomy. She had a laparoscopic cholecystectomy in March 2018. She has had bilateral cataract extractions. She had a hysterectomy through a low transverse scar and believes that her ovaries were removed as well. She underwent a bladder sling type of procedure. She has had several colonoscopies for a history of ulcerative colitis most recently in December [address] Echevarria. PAST MEDICAL HISTORY: Medical history is significant for asthma. She has ulcerative colitis. She has known diverticulosis. FAMILY HISTORY: There is a history of colon cancer in her mother's side of the family. SOCIAL HISTORY: The patient is a former smoker and denies any significant alcohol intake. REVIEW OF SYSTEMS: No history of chest pain or palpitations. She has had no cough, wheezing or sputum production. She denies any seizure or stroke. She has had no history of deep vein thrombosis (DVT) or pulmonary embolus. Other than a pressure sensation in her lower abdomen over the last month or so, she has been feeling okay. She has not noticed any rectal bleeding. She denies any dysuria or hematuria or pneumaturia. There is no significant bone or joint issues currently. PHYSICAL EXAMINATION: Reveals a thin, older woman in no acute distress currently. She has a nasogastric tube in place, which has a small bilious fluid in the tubing. The patient is alert and oriented. Skin is warm and dry. Sclerae are anicteric. Neck is supple without mass. Lungs are clear to auscultation bilaterally. Heart exam shows a regular rate and rhythm. The abdomen is fairly thin and flat. She has a transverse scar in the right lower quadrant approximately 8 to 10 cm in length. There is a roughly 15-20 cm scar across the pubic area. She has some bowel sounds present. There are no evident hernias. Palpation reveals the abdomen to be fairly soft without any point tenderness, though there is some mild discomfort on palpation, more so in the right mid and upper abdomen. LABORATORIES STUDIES: White count of 9, hemoglobin 14, hematocrit 43 and platelet count of 330,000. Her chemistries are as noted in the history of present illness with the only notable finding a potassium of 3.2. She had a normal lipase and normal liver function tests. Her lactate was 1.4. I reviewed her CT scan and the imaging personally. IMPRESSION: 1. Small-bowel obstruction. 2. Asthma. 3. Ulcerative colitis. 4. Diverticulosis. 5. Suspicious findings on CT scan worrisome for possible cancer. PLAN: The patient has a nasogastric tube in place to address her bowel obstruction. She is receiving IV maintenance fluids. Her abdomen is not particularly distended currently. The abdomen is fairly soft and without significant tenderness. We will monitor her to see if there is any spontaneous resolution of her obstruction. I do think the obstruction is in the same spot as it was a month ago, which is down effectively in the terminal ileum in her pelvis on the right. The changes noted by the radiologist are not dramatic. She did have a small amount of ascites noted a month ago as well, which was attributed to her bowel obstruction and this could still be the case. I do think it would be prudent to perform a laparoscopy at some point during her hospital stay to assess the location of her obstruction and also look for any evidence of metastatic disease. She indicates she would be agreeable with this plan. I will need to find time in the OR schedule to make this happen and we will let her know when we have time available. LENA
[2019-05-27 05:47] LABS: BASO % 0.6 % (0.0-1.0); EOS # 0.3 10^3/uL (0.0-0.5); HEMATOCRIT 37.7 % (36.0-47.0); HEMOGLOBIN 11.7 g/dl (12.0-15.5); LYMPH # 0.8 10^3/uL (1.5-5.0); LYMPH % 16.3 % (24.0-44.0); MEAN CORPUSCULAR HEMOGLOBIN 28.2 pg (27.0-33.0); MEAN CORPUSCULAR VOLUME 90.8 fl (80.0-96.0); MONO # 0.5 10^3/uL (0.0-0.8); NEUTROPHILS # 3.4 10^3/uL (1.5-8.5); NEUTROPHILS % 67.7 % (36.0-66.0); PLATELET COUNT, AUTOMATED 279 10^3/uL (150-450); RED BLOOD COUNT 4.15 10^6/uL (4.00-5.40)
[2019-05-27 06:00] VITALS: BP 116/61
[2019-05-27 06:19] LABS: ALBUMIN 2.5 GM/DL (3.2-5.2); ALT/SGPT 12 U/L (12-78); BILIRUBIN,TOTAL 0.9 MG/DL (0.2-1.0); BLOOD UREA NITROGEN 14 MG/DL (7-18); CALCIUM LEVEL 7.9 MG/DL (8.8-10.2); CARBON DIOXIDE LEVEL 23 MEQ/L (21-32); CHLORIDE LEVEL 111 MEQ/L (98-107); CREATININE FOR GFR 0.54 MG/DL (0.55-1.30); GLOMERULAR FILTRATION RATE > 60.0 (>39); GLUCOSE, FASTING 64 MG/DL (70-100); POTASSIUM SERUM 3.4 MEQ/L (3.5-5.1); SODIUM LEVEL 146 MEQ/L (136-145); TOTAL PROTEIN 5.5 GM/DL (6.4-8.2)
[2019-05-27] MEDS: SYMBICORT 80/4.5MCG INHALER 6GM INH SCH ×2 (07:48→20:16)
--- NOTE | 2019-05-27 07:55 | IPN ---
DATE: 05/26/2019 HISTORY: The patient was admitted on the with a history of abdominal pain with nausea and vomiting and constipation. A CT scan suggested a small bowel obstruction in the very distal small bowel in the pelvis on the right. There were some changes in the abdomen which the radiologist felt were suggestive of carcinomatosis. She is being treated for the bowel obstruction with a nasogastric tube and IV hydration. Vital signs show that she had a T-max of 101 degrees at 10 o'clock on the , but has been afebrile since. Her pulse is in the range of about 60-85 and her blood pressure is good. Room air oxygen saturations are normal. Intake and output shows intake of 1620 yesterday with output of 510 recorded. 140 mL was from the NG tube. PHYSICAL EXAMINATION: The patient is sitting propped up in the bed with a nasogastric tube in place. She is alert and oriented. Heart exam shows a regular rhythm. The lungs are clear. The abdomen is generally thin, but somewhat full. She has scarring consistent with her prior surgery. She does have some bowel sounds present. On palpation there is some tenderness in the right mid and lower abdomen. Laboratory studies show a white count of 5, hemoglobin 12, hematocrit of 39 and a platelet count of 299,000. Chemistry profile shows a sodium of 144, potassium 3.3, chloride 111, CO2 of 28, BUN of 9, creatinine 0.6 and a glucose of 88. Liver function tests are normal with a total protein of 5.5 and an albumin of 2.5. She had a abdominal x-ray and a chest x-ray on the morning of the . Chest x-ray showed no acute pulmonary process. The abdominal x-ray revealed some mild to moderate dilation of several small bowel loops in the mid and lower abdomen. This did not seem to me significantly changed from the images from the time of her admission. IMPRESSION: Persistent small-bowel obstruction with question of abdominal cancer. PLAN: The patient will be to continue on NG decompression with IV hydration. I spoke to her that I believed a diagnostic laparoscopy would be prudent, even if her symptoms seemed to remit with nonoperative therapy. If her symptoms do not remit then laparoscopy as a therapeutic procedure to relieve her obstruction would be required. I have suggested that we plan on surgery for May 28 and proceed at that time and she is agreeable. LENA
[2019-05-27] MEDS: NS 1,000 ML IV SCH (09:07)
[2019-05-27] MEDS: KCL 10MEQ/100ML SWI (KRUN) 10 MEQ in IV 1 EA IV SCH ×4 (10:26→17:56)
[2019-05-27 14:00] VITALS: BP 115/63
[2019-05-27] MEDS: NS 0.45% 1,000 ML IV SCH (17:09)
--- NOTE | 2019-05-27 17:55 | IPNPDOC ---
Date Seen The patient was seen on 05/27/19. Progress Note SUBJECTIVE: 74-year-old female with past medical history of ulcerative colitis, diverticulosis and asthma, was admitted for small bowel obstruction. She has been medically managed with NG tube placement and nothing by mouth diet, with significant improvement in abdominal pain, but continues to have right lower quadrant pain, not passing any flatus, no bowel movement since admission. She was a value by surgery and is planned for a diagnostic and probably therapeutic laparoscopy tomorrow. Patient is without any additional complaints at this time, denies any chest pain, nausea, vomiting or urinary complaints. OBJECTIVE PHYSICAL EXAMINATION: VITAL SIGNS: Please see below. GENERAL: No distress HEENT: Normocephalic, atraumatic, moist mucous membranes NECK: Supple CARDIOVASCULAR EXAMINATION: S1, S2, no murmurs RESPIRATORY EXAMINATION: Clear to auscultation, no wheezing ABDOMINAL EXAMINATION: Soft, right lower quadrant and left lower quadrant tenderness to palpation, nondistended, absent bowel sounds EXTREMITIES: Range of motion intact SKIN: No rash NEUROLOGICAL EXAMINATION: Alert and oriented 3, no focal deficits PSYCHIATRIC EXAMINATION: Calm and cooperative LABORATORY DATA, IMAGING STUDIES, MICROBIOLOGY: Please see below. DVT prophylaxis ordered?: Yes ASSESSMENT AND PLAN: 74-year-old female with past medical history of ulcerative colitis and asthma, was admitted for recurrent small bowel obstruction. PROBLEMS: 1. Recurrent small bowel obstruction: Previous episode 1 month ago, has had multiple abdominal surgeries, CT is also concerning for possible malignancy/metastatic disease, minimal improvement in obstruction since hospitalization, continue maintenance IV fluids/pain control/Zofran. Scheduled for laparoscopy tomorrow. 2. Asthma: Continue Symbicort and albuterol as needed. DVT prophylaxis: TEDs/SCDs GI prophylaxis: Not needed VS, I&O, 24H, Fishbone Vital Signs/I&O Vital Signs Date Time Temp Pulse Resp B/P (MAP) Pulse Ox O2 Delivery O2 Flow Rate FiO2 05/27/19 14:00 98.5 76 20 115/63 (80) 94 Room Air I&O- Last 24 Hours up to 6 AM 05/27/19 06:00 Intake Total 1731 ml Output Total 520 ml Balance 1211 ml Laboratory Data 24H LABS Laboratory Tests 2 05/27/19 05:33: Immature Granulocyte % (Auto) 0.4, Neutrophils (%) (Auto) 67.7H, Lymphocytes (%) (Auto) 16.3L, Monocytes (%) (Auto) 9.0H, Eosinophils (%) (Auto) 6.0H, Basophils (%) (Auto) 0.6, Neutrophils # (Auto) 3.4, Lymphocytes # (Auto) 0.8L, Monocytes # (Auto) 0.5, Eosinophils # (Auto) 0.3, Basophils # (Auto) 0.0, Nucleated Red Blood Cells % (auto) 0.0, Anion Gap 12, Glomerular Filtration Rate > 60.0, Calcium Level 7.9L, Total Bilirubin 0.9, Aspartate Amino Transf (AST/SGOT) 11, Alanine Aminotransferase (ALT/SGPT) 12, Alkaline Phosphatase 58, Total Protein 5.5L, Albumin 2.5L, Albumin/Globulin Ratio 0.83L CBC/BMP Laboratory Tests 05/27/19 05:33 ROLAND BUTT MD May 27, 2019 17:55
[2019-05-27] MEDS ORDERED: KCL 10MEQ/100ML SWI (KRUN) 10 MEQ in IV 1 EA IV ONE (18:00)
--- NOTE | 2019-05-27 19:35 | IPN ---
DATE: 05/27/2019 HISTORY: The patient was admitted with a bowel obstruction in the distal small bowel down in the pelvis, but the radiologist also felt there were some changes on her CT scan suggestive of carcinomatosis. She has a nasogastric (NG) tube in place and has been receiving IV fluids. She is scheduled tomorrow for laparoscopy to address the question of possible cancer, but also to address her obstruction, which has not apparently resolved. Vital signs: Show that she has been afebrile since yesterday. Her pulse is in the 50s to 70s and her blood pressure is good. Intake and output shows that yesterday she had 1900 in with 720 recorded out. Only 270 of that was NG drainage and 450 was urine output. PHYSICAL EXAMINATION: The patient looks fairly comfortable sitting up in bed in the room. She has visitors in the room with her. The NG tube is in place and has a small amount of fluid in the drainage canister. Heart exam shows a regular rhythm. The lungs are clear. The abdomen appears fairly thin and flat. There is some mild tenderness to palpation in the mid and upper abdomen in particular. Laboratory studies today show white count of 5, hemoglobin of 12, hematocrit of 38 and a platelet count of 279,000. Chemistry profile showed a sodium of 146, potassium 3.4, chloride 111, CO2 of 23, BUN of 14, creatinine 0.5 and a glucose of 64. IMPRESSION: The patient reports that she has not passed any gas or had any stool. This would be consistent with a persistent obstruction. Though her abdomen is not particularly distended, she does have some tenderness on palpation. PLAN: The plan is to proceed with laparoscopy, possible laparotomy tomorrow to address her obstruction and also assess the possibility that there is underlying cancer. She has been counseled for the surgery and desires to proceed. LENA
[2019-05-27 22:00] VITALS: BP 135/65
[2019-05-28] VITALS (7 sets, daily range): BP systolic 118–135; BP diastolic 64–76
[2019-05-28] MEDS ORDERED: cefoTEtan DISODIUM 2 GM in D5W MINI-BAG PLUS 50 ML IV ONE (06:00)
[2019-05-28 07:00] LABS: HEMATOCRIT 39.4 % (36.0-47.0); HEMOGLOBIN 11.9 g/dl (12.0-15.5); MEAN CORPUSCULAR HEMOGLOBIN 27.5 pg (27.0-33.0); MEAN CORPUSCULAR HGB CONC 30.2 g/dl (32.0-36.5); PLATELET COUNT, AUTOMATED 295 10^3/uL (150-450); RED BLOOD COUNT 4.33 10^6/uL (4.00-5.40); WHITE BLOOD COUNT 5.3 10^3/uL (4.0-10.0)
[2019-05-28 07:47] LABS: BLOOD UREA NITROGEN 12 MG/DL (7-18); CALCIUM LEVEL 8.4 MG/DL (8.8-10.2); CARBON DIOXIDE LEVEL 19 MEQ/L (21-32); CHLORIDE LEVEL 110 MEQ/L (98-107); CREATININE FOR GFR 0.54 MG/DL (0.55-1.30); GLOMERULAR FILTRATION RATE > 60.0 (>39); GLUCOSE, FASTING 54 MG/DL (70-100); MAGNESIUM LEVEL 2.1 MG/DL (1.8-2.4); POTASSIUM SERUM 4.2 MEQ/L (3.5-5.1); SODIUM LEVEL 141 MEQ/L (136-145)
[2019-05-28] MEDS: SYMBICORT 80/4.5MCG INHALER 6GM INH SCH ×2 (08:28→20:03)
--- NOTE | 2019-05-28 09:59 | REP ---
KUB ABDOMEN AND PELVIS: KUB film of abdomen and pelvis performed. Nasogastric tube is seen with sideport in the stomach. Metallic clips are seen in the right upper quadrant. Previously noted mildly dilated small bowel loops in the pelvis have decreased in caliber. They do not appear to be significantly dilated. There is no other evidence of bowel dilatation. Electronically Signed by Randy Neumann MD 05/28/2019 05:35 P
[2019-05-28] MEDS ORDERED: BUPIVACAINE HCL 0.25% 30 ML VIAL As Ordered ONE (11:34)
[2019-05-28] MEDS ORDERED: cefoTEtan INJ 2GM VIAL (S0074 PER 500MG) ONE (12:14)
[2019-05-28] MEDS ORDERED: cefoTEtan INJ 2GM VIAL (S0074 PER 500MG) As Ordered ONE (12:14)
[2019-05-28] MEDS ORDERED: LIDOCAINE 2% INJ 100 MG/5 ML SDV (FOR ANES.) As Ordered ONE (12:30)
[2019-05-28] MEDS ORDERED: SUGAMMADEX SODIUM 500 MG/5 ML VIAL (BRIDION) As Ordered ONE (12:30)
[2019-05-28] MEDS ORDERED: fentaNYL 250 MCG/5 ML INJECTION (J3010) As Ordered ONE (12:30)
[2019-05-28] MEDS ORDERED: METOCLOPRAMIDE INJ 10MG/2ML VIAL (J2765) As Ordered ONE (12:30)
[2019-05-28] MEDS ORDERED: dexameTHASONE 4 MG/ML 1ML VIAL (J1100) As Ordered ONE (12:30)
[2019-05-28] MEDS ORDERED: propofoL 200 MG/20 ML VIAL As Ordered ONE (12:30)
[2019-05-28] MEDS ORDERED: MIDAZOLAM INJ 2 MG/2 ML VIAL (J2250) As Ordered ONE (12:30)
[2019-05-28] MEDS ORDERED: ROCURONIUM BROMIDE 50 MG/5 ML VIAL As Ordered ONE (12:30)
[2019-05-28] MEDS ORDERED: ONDANSETRON 4MG/2ML VIAL (J2405) As Ordered ONE (12:30)
[2019-05-28] MEDS ORDERED: LABETALOL HCL 100 MG/20 ML VIAL As Ordered ONE (13:16)
[2019-05-28] MEDS ORDERED: MORPHINE 4 MG/ML 1ML VIAL/SYRINGE (J2270) IV PRN (14:30)
[2019-05-28] MEDS ORDERED: MORPHINE 2 MG/ML 1ML VIAL (J2270) IV PRN (14:30)
[2019-05-28] MEDS ORDERED: ONDANSETRON 4MG/2ML VIAL (J2405) IV PRN (14:45)
[2019-05-28] MEDS ORDERED: fentaNYL 100 MCG/2 ML INJECTION (J3010) IV PRN (14:45)
[2019-05-28] MEDS ORDERED: LR 1,000 ML IV SCH (14:45)
[2019-05-28] MEDS ORDERED: METOCLOPRAMIDE INJ 10MG/2ML VIAL (J2765) IV PRN (14:45)
[2019-05-28] MEDS ORDERED: MEPERIDINE INJ 25 MG/ML VIAL (J2175) IV PRN (14:45)
[2019-05-28] MEDS ORDERED: PERCOCET 5MG/325MG TAB PO PRN (14:45)
[2019-05-28] MEDS: NS 0.45% 1,000 ML IV SCH (15:10)
--- NOTE | 2019-05-28 23:04 | IPNPDOC ---
Date Seen The patient was seen on 05/28/19. Progress Note SUBJECTIVE: 74-year-old female with past medical history of ulcerative colitis, diverticulosis and asthma, was admitted for small bowel obstruction. She has been medically managed with NG tube placement and nothing by mouth diet, with significant improvement in abdominal pain, but continues to have right lower quadrant pain, not passing any flatus, no bowel movement since admission. She was a value by surgery and is planned for a diagnostic and probably therapeutic laparoscopy tomorrow. Patient is without any additional complaints at this time, denies any chest pain, nausea, vomiting or urinary complaints. 05/28/19 Continues to have abdominal pain & significant amount of NGT output. She reports no change from yesterday, still not passing any flatus. She is scheduled for a Laparoscopy later today. 10 point review of system is negative except for above. OBJECTIVE PHYSICAL EXAMINATION: VITAL SIGNS: Please see below. GENERAL: No distress HEENT: Normocephalic, atraumatic, moist mucous membranes NECK: Supple CARDIOVASCULAR EXAMINATION: S1, S2, no murmurs RESPIRATORY EXAMINATION: Clear to auscultation, no wheezing ABDOMINAL EXAMINATION: Soft, right lower quadrant and left lower quadrant tenderness to palpation, nondistended, hypoactive bowel sounds EXTREMITIES: Range of motion intact SKIN: No rash NEUROLOGICAL EXAMINATION: Alert and oriented 3, no focal deficits PSYCHIATRIC EXAMINATION: Calm and cooperative LABORATORY DATA, IMAGING STUDIES, MICROBIOLOGY: Please see below. DVT prophylaxis ordered?: Yes ASSESSMENT AND PLAN: 74-year-old female with past medical history of ulcerative colitis and asthma, was admitted for recurrent small bowel obstruction. PROBLEMS: 1. Recurrent small bowel obstruction: Previous episode 1 month ago, has had multiple abdominal surgeries, CT is also concerning for possible malignancy/metastatic disease, minimal/no improvement with conservative management, scheduled for laparoscopy later today, continue maintenance IV fluids/pain control/Zofran. 2. Asthma: Continue Symbicort and albuterol as needed. DVT prophylaxis: TEDs/SCDs GI prophylaxis: Not needed VS, I&O, 24H, Fishbone Vital Signs/I&O Vital Signs Date Time Temp Pulse Resp B/P (MAP) Pulse Ox O2 Delivery O2 Flow Rate FiO2 05/28/19 19:00 97.0 76 17 125/73 (90) 99 Nasal Cannula 2.0 I&O- Last 24 Hours up to 6 AM 05/28/19 06:00 Intake Total 720 ml Output Total 1520 ml Balance -800 ml Laboratory Data 24H LABS Laboratory Tests 2 05/28/19 06:42: Nucleated Red Blood Cells % (auto) 0.0, Anion Gap 12, Glomerular Filtration Rate > 60.0, Calcium Level 8.4L, Phosphorus Level 3.0, Magnesium Level 2.1 CBC/BMP Laboratory Tests 05/28/19 06:42 ROLAND BUTT MD May 28, 2019 23:04
[2019-05-29] VITALS (8 sets, daily range): BP systolic 114–137; BP diastolic 64–77
[2019-05-29] MEDS: NS 0.45% 1,000 ML IV SCH (06:19)
[2019-05-29] MEDS: SYMBICORT 80/4.5MCG INHALER 6GM INH SCH ×2 (08:06→19:55)
--- NOTE | 2019-05-29 11:51 | RO ---
DATE OF PROCEDURE: 05/28/2019 PREOPERATIVE DIAGNOSES: 1. Intestinal obstruction. 2. Abnormal abdominal CT suggesting possible malignancy. POSTOPERATIVE DIAGNOSES: 1. 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 2. Possible distal small bowel obstruction. PROCEDURES PERFORMED: Laparoscopy with aspiration of ascitic fluid for cytology and biopsy of peritoneal nodules. SURGEON: Binh Sherwood MD ANESTHESIA: General. INDICATIONS FOR THE PROCEDURE: The patient is a 74-year-old woman who was admitted on 05/25/2019 with evidence for a bowel obstruction. She had been in the hospital approximately a month earlier with signs and symptoms of a distal small bowel obstruction that seemed to resolve. She has been losing some weight, and her appetite has been off. Her CT scan on admission on 05/25/2019 was interpreted by the radiologist as showing some changes that were felt to be worrisome for metastatic disease within the omentum and the edge of the liver. The patient is now for laparoscopy and possible laparotomy for her bowel obstruction and possible malignancy. DESCRIPTION OF PROCEDURE: The patient was brought to the operating room and placed on the table in a supine position. She was placed under general endotracheal anesthesia. A Zee catheter was inserted. The patient's abdomen was prepped and draped in a sterile fashion. I elected to place the initial entry into the abdomen in the right upper quadrant. Local anesthesia was infiltrated at each of the trocar sites with 0.25% Marcaine. A short transverse incision was made, and a Veress needle was inserted. After a positive hanging drop test, the abdomen was inflated with carbon dioxide gas. A 5-mm port was placed over a 5-mm 30-degree scope and advanced to the abdominal wall without difficulty. On entering the abdomen, the patient was noted to have some lightly yellowish-tinted ascitic fluid up in the right upper quadrant around the liver and down in the lower abdomen, as well. There were some dense adhesions of some omentum or what appeared to be omentum to the anterior abdominal wall in several small spots. I used a suction tool machinist to aspirate approximately 300 mL of ascitic fluid into a canister, and this was sent for cytology. As I inspected further, aided by removal of the fluid, the patient was noted to have innumerable small nodules scattered over the surface of her small bowel in the lower abdomen. There were small nodules approximately 2-4 mm scattered over the anterior abdominal wall, as well. There was some denser firm tissue involving what appeared to be the transverse colon crossing the upper abdomen with the omentum matted together with some areas consistent with tumor. There were some small nodular areas with adhesions to omentum along the edge of the right lobe of the liver. The diaphragm above the right lobe of the liver had some plaque-like whitish-vela areas also consistent with tumor. I did not see any definite mass lesions within the liver. The bowel was fairly diffusely mildly dilated. Looking into the pelvis, the right colon was identified, and there appeared to be some denser thickening and narrowing of the region of the terminal ileum. A biting biopsy forceps was obtained from the gynecologic operative laparoscopy tray, and multiple bite biopsies of small nodules and the plaques above the liver were obtained. All of these fragments were sent together in a single specimen. The biopsy areas were inspected, and several were cauterized for hemostasis. Final inspection revealed no further bleeding. Given the diffuse nature of her apparent cancer involvement, I elected not to proceed with any sort of bowel resection. I would note that a second 5-mm laparoscopic port was placed after the initial inspection. This was placed in the epigastrium slightly to the left of the midline to facilitate aspiration of the fluid and collection of the biopsies. Once the final inspection has been performed, the abdomen was deflated. The trocars were removed. The two incisions were closed with buried 4-0 Vicryl sutures and Steri-Strips. The patient tolerated the procedure well. Light dressings were applied. Her Zee catheter was removed. The nasogastric (NG) tube was continued. She was awakened and extubated and moved to the recovery room in stable condition. LENA
--- NOTE | 2019-05-29 14:51 | IPNPDOC ---
Date Seen The patient was seen on 05/29/19. Progress Note SUBJECTIVE: 74-year-old female with past medical history of ulcerative colitis, diverticulosis and asthma, was admitted for small bowel obstruction. She has been medically managed with NG tube placement and nothing by mouth diet, with significant improvement in abdominal pain, but continues to have right lower quadrant pain, not passing any flatus, no bowel movement since admission. She was a value by surgery and is planned for a diagnostic and probably therapeutic laparoscopy tomorrow. Patient is without any additional complaints at this time, denies any chest pain, nausea, vomiting or urinary complaints. 05/28/19 Continues to have abdominal pain & significant amount of NGT output. She reports no change from yesterday, still not passing any flatus. She is scheduled for a Laparoscopy later today. 10 point review of system is negative except for above. OBJECTIVE PHYSICAL EXAMINATION: VITAL SIGNS: Please see below. GENERAL: No distress HEENT: Normocephalic, atraumatic, moist mucous membranes NECK: Supple CARDIOVASCULAR EXAMINATION: S1, S2, no murmurs RESPIRATORY EXAMINATION: Clear to auscultation, no wheezing ABDOMINAL EXAMINATION: Soft, right lower quadrant and left lower quadrant tenderness to palpation, nondistended, hypoactive bowel sounds EXTREMITIES: Range of motion intact SKIN: No rash NEUROLOGICAL EXAMINATION: Alert and oriented 3, no focal deficits PSYCHIATRIC EXAMINATION: Calm and cooperative LABORATORY DATA, IMAGING STUDIES, MICROBIOLOGY: Please see below. DVT prophylaxis ordered?: Yes ASSESSMENT AND PLAN: 74-year-old female with past medical history of ulcerative colitis and asthma, was admitted for recurrent small bowel obstruction. PROBLEMS: 1. Recurrent small bowel obstruction: Previous episode 1 month ago, has had multiple abdominal surgeries, underwent exploratory laparoscopy yesterday which showed multiple metastatic lesions in the peritoneal cavity, biopsy was obtained, there does not appear to have been any external cause for the obstruction, possibly as primary malignancy in the GI tract causing the bowel ob struction, continue with NG tube to low intermittent suction, continue maintenance IV fluids/pain control/Zofran. Discussed possible options if malignancy, patient does not want oncology consult at this time. she does not want to pursue a diagnosis of treatment, wishes to spend her remaining time being, comfortable, palate of care consulted. 2. Asthma: Continue Symbicort and albuterol as needed. DVT prophylaxis: Lovenox GI prophylaxis: Not needed VS, I&O, 24H, Fishbone Vital Signs/I&O Vital Signs Date Time Temp Pulse Resp B/P (MAP) Pulse Ox O2 Delivery O2 Flow Rate FiO2 05/29/19 12:00 97.9 76 17 119/65 (83) 96 Room Air 05/29/19 10:00 2.0 I&O- Last 24 Hours up to 6 AM 05/29/19 06:00 Intake Total 2100 ml Output Total 1585 ml Balance 515 ml Laboratory Data 24H LABS Laboratory Tests 2 05/29/19 05:43: ROLAND BUTT MD May 29, 2019 14:51
[2019-05-29] MEDS: D5W/0.45% SODIUM CHLORIDE 1,000 ML IV SCH (15:09)
[2019-05-29] MEDS ORDERED: ENOXAPARIN 40 MG/0.4 ML SYRINGE (J1650) SC ONE (16:00)
[2019-05-30] MEDS: KETOROLAC 30 MG/ML VIAL (J1885) IV PRN (04:24)
[2019-05-30] MEDS: D5W/0.45% SODIUM CHLORIDE 1,000 ML IV SCH (04:50)
[2019-05-30 06:00] VITALS: BP 119/72
[2019-05-30 06:06] LABS: HEMATOCRIT 36.8 % (36.0-47.0); HEMOGLOBIN 11.6 g/dl (12.0-15.5); MEAN CORPUSCULAR HEMOGLOBIN 27.3 pg (27.0-33.0); MEAN CORPUSCULAR HGB CONC 31.5 g/dl (32.0-36.5); MEAN CORPUSCULAR VOLUME 86.6 fl (80.0-96.0); PLATELET COUNT, AUTOMATED 298 10^3/uL (150-450); RED BLOOD COUNT 4.25 10^6/uL (4.00-5.40); WHITE BLOOD COUNT 6.2 10^3/uL (4.0-10.0)
[2019-05-30 06:42] LABS: BLOOD UREA NITROGEN 7 MG/DL (7-18); CALCIUM LEVEL 8.2 MG/DL (8.8-10.2); CARBON DIOXIDE LEVEL 28 MEQ/L (21-32); CHLORIDE LEVEL 106 MEQ/L (98-107); GLOMERULAR FILTRATION RATE > 60.0 (>39); GLUCOSE, FASTING 99 MG/DL (70-100); POTASSIUM SERUM 3.2 MEQ/L (3.5-5.1); SODIUM LEVEL 141 MEQ/L (136-145)
[2019-05-30] MEDS: SYMBICORT 80/4.5MCG INHALER 6GM INH SCH ×2 (07:39→20:17)
[2019-05-30] MEDS ORDERED: ENOXAPARIN 40 MG/0.4 ML SYRINGE (J1650) SC SCH (09:00)
[2019-05-30] MEDS: KCL 10MEQ/100ML SWI (KRUN) 10 MEQ in IV 1 EA IV SCH ×4 (11:06→16:43)
[2019-05-30 11:16] LABS: CA19-9 TUMOR MARKER,CARBOHYDRA < 1.2 U/ML (<35.0)
--- NOTE | 2019-05-30 12:40 | IPNPDOC ---
Date Seen The patient was seen on 05/30/19. Progress Note SUBJECTIVE: 74-year-old female with past medical history of ulcerative colitis, diverticulosis and asthma, was admitted for small bowel obstruction. She has been medically managed with NG tube placement and nothing by mouth diet, with significant improvement in abdominal pain, but continues to have right lower quadrant pain, not passing any flatus, no bowel movement since admission. She was evaluated by surgery and is planned for a diagnostic and probably therapeutic laparoscopy tomorrow. Patient is without any additional complaints at this time, denies any chest pain, nausea, vomiting or urinary complaints. 05/28/19 Continues to have abdominal pain & significant amount of NGT output. She reports no change from yesterday, still not passing any flatus. She is scheduled for a Laparoscopy later today. 05/30/19 Patient elected for home hospice, eval pending. Adequate prolonged discussion with patient and daughter at bedside, wishes to pursue DNR/DNI, MOLST form completed and status changed. Apart from IV hydration and pain control patient does not wish to pursue any other medical treatment at this time with the understanding that she will be going to home hospice when arrangements are made. OBJECTIVE PHYSICAL EXAMINATION: VITAL SIGNS: Please see below. GENERAL: No distress HEENT: Normocephalic, atraumatic, moist mucous membranes NECK: Supple CARDIOVASCULAR EXAMINATION: S1, S2, no murmurs RESPIRATORY EXAMINATION: Clear to auscultation, no wheezing ABDOMINAL EXAMINATION: Soft, right lower quadrant and left lower quadrant tenderness to palpation, nondistended, hypoactive bowel sounds EXTREMITIES: Range of motion intact SKIN: No rash NEUROLOGICAL EXAMINATION: Alert and oriented 3, no focal deficits PSYCHIATRIC EXAMINATION: Calm and cooperative LABORATORY DATA, IMAGING STUDIES, MICROBIOLOGY: Please see below. DVT prophylaxis ordered?: Yes ASSESSMENT AND PLAN: 74-year-old female with past medical history of ulcerative colitis and asthma, was admitted for recurrent small bowel obstruction. PROBLEMS: 1. Recurrent small bowel obstruction: Previous episode 1 month ago, has had multiple abdominal surgeries, underwent exploratory laparoscopy which showed multiple metastatic lesions in the peritoneal cavity, biopsy was obtained. Given the likelihood of malignancy patient has elected for home hospice and does not wish to pursue any diagnosis or treatment at this time, hospice eval is pending, patient is now DNR/DNI, will stop all forms of treatment apart from IV hydration and pain control. 2. Asthma: Continue Symbicort and albuterol as needed. DVT prophylaxis: SCDs/TEDs GI prophylaxis: Not needed VS, I&O, 24H, Fishbone Vital Signs/I&O Vital Signs Date Time Temp Pulse Resp B/P (MAP) Pulse Ox O2 Delivery O2 Flow Rate FiO2 05/30/19 06:00 98.6 67 14 119/72 (88) 93 Room Air 05/29/19 10:00 2.0 I&O- Last 24 Hours up to 6 AM 05/30/19 06:00 Intake Total 1400 ml Output Total 2425 ml Balance -1025 ml Laboratory Data 24H LABS Laboratory Tests 2 05/30/19 05:50: Nucleated Red Blood Cells % (auto) 0.0, Anion Gap 7L, Glomerular Filtration Rate > 60.0, Calcium Level 8.2L CBC/BMP Laboratory Tests 05/30/19 05:50 ROLAND BUTT MD May 30, 2019 12:40
[2019-05-30 14:00] VITALS: BP 122/73
--- NOTE | 2019-05-30 17:42 | IPN ---
DATE: 05/29/2019 HISTORY: The patient is now postoperative day #1 from a laparoscopy with biopsy of multiple peritoneal nodules and cytology collection for widespread carcinomatosis. Because of the extensive nature of her tumor, I did not perform a bowel resection. Vital signs show that she has been afebrile, and her pulse is in the 60s and 70s with good blood pressure. Intake and output shows that yesterday she had 2160 in with 1035 out. PHYSICAL EXAMINATION: The patient is alert and appears fairly comfortable. Her nasogastric (NG) tube remains in place to low intermittent suction. Her family is present with her daughter, son-in-law, and . Her abdomen is nondistended, and her dressings are dry. Laboratory studies show that her CEA and CA19-9 were drawn but are pending. IMPRESSION: The patient has some sort of widespread tumor throughout the abdomen. I anticipate that this is some form of carcinoma, though the source is unknown. She had a CA19-9 and a CEA level drawn this morning, and her pathology and cytology are still pending. PLAN: I had a discussion with the patient and spoke with her for perhaps 10 minutes before her family came to the room. She has indicated that she does not wish to pursue chemotherapy if this is not really going to be of great benefit. We discussed that with the extensive nature of the tumor, unless there is something particularly unusual about her tumor, that I would not expect her to have a great gain in survival time by attempting chemotherapy medications at this time. She seems resigned to maintaining comfort over taking chemotherapy with a small hope of increasing her life span. She indicates that the hospitalist had a long discussion with her and her family earlier, and a palliative care consultation is being submitted. I do think that palliative care and probably hospice care is appropriate at this point. The pathology is pending, but I do not believe the final report will change this overall outlook. LENA
[2019-05-30 18:00] VITALS: BP 141/82
[2019-05-30] MEDS ORDERED: KCL 10MEQ/100ML SWI (KRUN) 10 MEQ in IV 1 EA IV SCH (18:45)
[2019-05-30 22:00] VITALS: BP 117/76
[2019-05-31] VITALS (7 sets, daily range): BP systolic 123–143; BP diastolic 78–87
[2019-05-31] MEDS: D5W/0.45% SODIUM CHLORIDE 1,000 ML IV SCH ×2 (05:36→22:03)
[2019-05-31] MEDS: SYMBICORT 80/4.5MCG INHALER 6GM INH SCH ×2 (07:23→20:32)
--- NOTE | 2019-05-31 11:35 | IPNPDOC ---
Text Note Date of Service The patient was seen on 05/31/19. NOTE malignant small bowel obstruction seems to be partially resolving. She reports having bms overnight or early this morning, has intermittent flatus She is tolerating her ngt clamped. Just started sips of clears. abdomen is only midly distended, no focal tenderness. Plan: continue clamping ngt. There is a good possiblity if she tolerates the ngt clamped that she may be able to go home without it on hospice next week. VS,Fishbone, I+O VS, Fishbone, I+O Vital Signs Date Time Temp Pulse Resp B/P (MAP) Pulse Ox O2 Delivery O2 Flow Rate FiO2 05/31/19 10:00 98.7 99 19 123/87 (99) 93 Room Air 05/29/19 10:00 2.0 I&O- Last 24 Hours up to 6 AM 05/31/19 06:00 Intake Total 720 ml Output Total 1150 ml Balance -430 ml CHRISTOPHER STEWART MD May 31, 2019 11:35
--- NOTE | 2019-05-31 15:16 | IPNPDOC ---
Date Seen The patient was seen on 05/31/19. Progress Note SUBJECTIVE: 74-year-old female with past medical history of ulcerative colitis, diverticulosis and asthma, was admitted for small bowel obstruction. She has been medically managed with NG tube placement and nothing by mouth diet, with significant improvement in abdominal pain, but continues to have right lower quadrant pain, not passing any flatus, no bowel movement since admission. She was evaluated by surgery and is planned for a diagnostic and probably therapeutic laparoscopy tomorrow. Patient is without any additional complaints at this time, denies any chest pain, nausea, vomiting or urinary complaints. 05/28/19 Continues to have abdominal pain & significant amount of NGT output. She reports no change from yesterday, still not passing any flatus. She is scheduled for a Laparoscopy later today. 05/30/19 Patient elected for home hospice, eval pending. Adequate prolonged discussion with patient and daughter at bedside, wishes to pursue DNR/DNI, MOLST form completed and status changed. Apart from IV hydration and pain control patient does not wish to pursue any other medical treatment at this time with the understanding that she will be going to home hospice when arrangements are made. 05/31/19 Patient reports having 6 bowel movements overnight and in the morning, watery, reports improvement in abdominal pain, NG tube has been clamped since the morning which patient was tolerated well, started on sips of water/ulisses sonny. Patient without additional complaints, pathology report has returned with metastatic adenocarcinoma, patient wishes to continue her current wishes of hospice care. OBJECTIVE PHYSICAL EXAMINATION: VITAL SIGNS: Please see below. GENERAL: No distress HEENT: Normocephalic, atraumatic, moist mucous membranes NECK: Supple CARDIOVASCULAR EXAMINATION: S1, S2, no murmurs RESPIRATORY EXAMINATION: Clear to auscultation, no wheezing ABDOMINAL EXAMINATION: Soft, no tenderness to palpation, nondistended, positive bowel sounds EXTREMITIES: Range of motion intact SKIN: No rash NEUROLOGICAL EXAMINATION: Alert and oriented 3, no focal deficits PSYCHIATRIC EXAMINATION: Calm and cooperative LABORATORY DATA, IMAGING STUDIES, MICROBIOLOGY: Please see below. DVT prophylaxis ordered?: Yes ASSESSMENT AND PLAN: 74-year-old female with past medical history of ulcerative colitis and asthma, was admitted for recurrent small bowel obstruction. PROBLEMS: 1. Recurrent small bowel obstruction: Previous episode 1 month ago, has had multiple abdominal surgeries, underwent exploratory laparoscopy which showed multiple metastatic lesions in the peritoneal cavity, pathology positive for metastatic adenocarcinoma, patient is elected for home hospice, eval pending. Patient had multiple bowel movements overnight in the morning, suggesting at least partial resolution of obstruction, NG tube has been clamped. The patient started on sips of clear liquids, if continues to improve she may be able to go home without NG tube. 2. Asthma: Continue Symbicort and albuterol as needed. DVT prophylaxis: SCDs/TEDs GI prophylaxis: Not needed VS, I&O, 24H, Fishbone Vital Signs/I&O Vital Signs Date Time Temp Pulse Resp B/P (MAP) Pulse Ox O2 Delivery O2 Flow Rate FiO2 05/31/19 14:00 99.2 80 17 124/81 (95) 94 Room Air 05/29/19 10:00 2.0 I&O- Last 24 Hours up to 6 AM 05/31/19 06:00 Intake Total 720 ml Output Total 1150 ml Balance -430 ml ROLAND BUTT MD May 31, 2019 15:16
[2019-06-01 02:00] VITALS: BP 112/69
[2019-06-01] MEDS: KETOROLAC 30 MG/ML VIAL (J1885) IV PRN ×2 (05:49→13:18)
[2019-06-01 06:00] VITALS: BP 119/76
[2019-06-01] MEDS: SYMBICORT 80/4.5MCG INHALER 6GM INH SCH ×2 (07:59→19:02)
[2019-06-01 10:00] VITALS: BP 119/75
--- NOTE | 2019-06-01 11:34 | IPNPDOC ---
Date Seen The patient was seen on 06/01/19. Progress Note SUBJECTIVE: 74-year-old female with past medical history of ulcerative colitis, diverticulosis and asthma, was admitted for small bowel obstruction. She has been medically managed with NG tube placement and nothing by mouth diet, with significant improvement in abdominal pain, but continues to have right lower quadrant pain, not passing any flatus, no bowel movement since admission. She was evaluated by surgery and is planned for a diagnostic and probably therapeutic laparoscopy tomorrow. Patient is without any additional complaints at this time, denies any chest pain, nausea, vomiting or urinary complaints. 05/28/19 Continues to have abdominal pain & significant amount of NGT output. She reports no change from yesterday, still not passing any flatus. She is scheduled for a Laparoscopy later today. 05/30/19 Patient elected for home hospice, eval pending. Adequate prolonged discussion with patient and daughter at bedside, wishes to pursue DNR/DNI, MOLST form completed and status changed. Apart from IV hydration and pain control patient does not wish to pursue any other medical treatment at this time with the understanding that she will be going to home hospice when arrangements are made. 05/31/19 Patient reports having 6 bowel movements overnight and in the morning, watery, reports improvement in abdominal pain, NG tube has been clamped since the morning which patient was tolerated well, started on sips of water/ulisses sonny. Patient without additional complaints, pathology report has returned with metastatic adenocarcinoma, patient wishes to continue her current wishes of hospice care. 06/01/19 Continues to have bowel movements, tolerating liquid diet, denies any nausea or abdominal pain, no other symptoms at this time. She denies any chest pain, shortness of breath, cough or headache. 10 point review of system is negative except for above OBJECTIVE PHYSICAL EXAMINATION: VITAL SIGNS: Please see below. GENERAL: No distress HEENT: Normocephalic, atraumatic, moist mucous membranes NECK: Supple CARDIOVASCULAR EXAMINATION: S1, S2, no murmurs RESPIRATORY EXAMINATION: Clear to auscultation, no wheezing ABDOMINAL EXAMINATION: Soft, no tenderness to palpation, nondistended, positive bowel sounds EXTREMITIES: Range of motion intact SKIN: No rash NEUROLOGICAL EXAMINATION: Alert and oriented 3, no focal deficits PSYCHIATRIC EXAMINATION: Calm and cooperative LABORATORY DATA, IMAGING STUDIES, MICROBIOLOGY: Please see below. DVT prophylaxis ordered?: Yes ASSESSMENT AND PLAN: 74-year-old female with past medical history of ulcerative colitis and asthma, was admitted for recurrent small bowel obstruction. PROBLEMS: 1. Recurrent small bowel obstruction: Previous episode 1 month ago, has had multiple abdominal surgeries, underwent exploratory laparoscopy which showed multiple metastatic lesions in the peritoneal cavity, pathology positive for metastatic adenocarcinoma, patient has elected for home hospice, eval pending. Small bowel obstruction has spontaneously resolved, NG tube has been clamped, patient tolerated clear liquid diet yesterday, will advance to full liquids. 2. Asthma: Continue Symbicort and albuterol as needed. DVT prophylaxis: SCDs/TEDs GI prophylaxis: Not needed VS, I&O, 24H, Fishbone Vital Signs/I&O Vital Signs Date Time Temp Pulse Resp B/P (MAP) Pulse Ox O2 Delivery O2 Flow Rate FiO2 06/01/19 10:00 97.3 78 17 119/75 (90) 93 Room Air 05/29/19 10:00 2.0 I&O- Last 24 Hours up to 6 AM 06/01/19 06:00 Intake Total 640 ml Output Total 650 ml Balance -10 ml ROLAND BUTT MD Jun 01, 2019 11:34
[2019-06-01 14:00] VITALS: BP 116/71
[2019-06-01] MEDS: D5W/0.45% SODIUM CHLORIDE 1,000 ML IV SCH (16:36)
[2019-06-01] MEDS: ONDANSETRON 4MG/2ML VIAL (J2405) IV PRN (16:36)
[2019-06-01 18:00] VITALS: BP 115/70
[2019-06-01 22:00] VITALS: BP 109/64
[2019-06-02] MEDS: D5W/0.45% SODIUM CHLORIDE 1,000 ML IV SCH (01:50)
[2019-06-02 02:00] VITALS: BP 113/63
[2019-06-02 06:00] VITALS: BP 95/66
[2019-06-02] MEDS: SYMBICORT 80/4.5MCG INHALER 6GM INH SCH ×2 (07:39→19:43)
[2019-06-02] MEDS: oxyCODONE 15 MG CR TAB PO SCH ×2 (09:00→21:00)
[2019-06-02] MEDS ORDERED: ACETAMINOPHEN 650 MG SUPP PR PRN (11:15)
[2019-06-02] MEDS ORDERED: MORPHINE 10MG/0.5ML ORAL CONCENTRATE SOLUTION U/D SL PRN (11:15)
[2019-06-02] MEDS ORDERED: LORazepam 1 MG TAB PO PRN (11:15)
[2019-06-02] MEDS ORDERED: ONDANSETRON 4MG/2ML VIAL (J2405) IV PRN (11:15)
[2019-06-02] MEDS ORDERED: SCOPOLAMINE 1MG TRANSDERMAL PATCH TOP PRN (11:15)
--- NOTE | 2019-06-02 11:31 | IPNPDOC ---
Subjective Date Seen The patient was seen on 06/02/19. Subjective Chief Complaint/HPI Patient complaining of abdominal pain after she eats small amount of food, but she wishes her NG tube to be taken out General: Denies: ROS Unobtainable, Chills, Night Sweats, Fatigue, Malaise, Normal Appetite, Other Symptoms Skin: Denies: Rash, Lesions, Jaundice, Bruising, Itching, Dry, Breakdown, Nail Changes, Other Pulmonary: Denies: Dyspnea, Cough, Pleuritic Chest Pain, Other Symptoms Cardiovascular: Denies: Chest Pain, Palpitations, Orthopnea, Paroxysmal Noc. Dyspnea, Edema, Lt Headedness, Other Symptoms Gastrointestinal: Denies: Nausea, Vomiting, Abdominal Pain, Diarrhea, Constipation, Melena, Hematochezia, Other Symptoms Endocrine: Denies: Polydipsia, Polyphagia, Polyuria, Heat Intolerance, Cold Intolerance, Other Endocrine Sx Musculoskeletal: Denies: Neck Pain, Back Pain, Shoulder Pain, Arm Pain, Hand Pain, Leg Pain, Foot Pain, Joint Pain, Muscle Pain, Spasms, Other Symptoms Neurological: Denies: Weakness, Numbness, Incoordination, Change in speech, Confusion, Seizures, Other Symptoms Objective Physical Examination Chest Exam: Positive: Clear to auscultation, Normal air movement Heart Exam: Positive: Rate Normal, Normal S1, Normal S2 Abdomen Exam: Positive: BS Hyperactive, Soft, Tenderness (. Mild tenderness on palpation at abdomen) Extremity Exam: Positive: Normal pulses Skin Exam: Positive: Nl turgor and temperature Neuro Exam: Positive: Strength at 5/5 X4 ext, Sensation Intact, Cranial Nerves 3-12 NL Assessment /Plan Problems (1) SBO (small bowel obstruction) Status: Acute Problem Text: Recurrent small bowel obstruction: Previous episode 1 month ago, has had multiple abdominal surgeries, underwent exploratory laparoscopy which showed multiple metastatic lesions in the peritoneal cavity, pathology positive for metastatic adenocarcinoma, patient has elected for home hospice, eval pending. Small bowel obstruction has spontaneously resolved, NG tube has been clamped, patient tolerated clear liquid diet yesterday, will advance to full liquids. I had a extensive discussion with patient and her daughter at the bedside patient and ordered. They both agreed with the comfort care only, hence we will DC NG tube, start patient with comfort feeding as well as meds only for comfort care. Hospice consult has been called and wants hospice has been arranged home. She will be discharged home with current pain medications. Prognosis is very poor and was discussed with the daughter at the bedside (2) Ulcerative (chronic) enterocolitis Status: Chronic Problem Text: . On no home meds Continue present care (3) Asthma Status: Chronic Problem Text: Continue home meds Plan/VTE VTE Prophylaxis Ordered?: Yes VS, I&O, 24H, Fishbone Vital Signs/I&O Vital Signs Date Time Temp Pulse Resp B/P (MAP) Pulse Ox O2 Delivery O2 Flow Rate FiO2 06/02/19 06:00 98.3 77 16 95/66 (76) 92 Room Air 05/29/19 10:00 2.0 I&O- Last 24 Hours up to 6 AM 06/02/19 06:00 Intake Total 840 ml Output Total 400 ml Balance 440 ml EBENEZER SANDS MD Jun 02, 2019 11:31
[2019-06-03] MEDS: SYMBICORT 80/4.5MCG INHALER 6GM INH SCH (07:49)
[2019-06-03] MEDS: oxyCODONE 15 MG CR TAB PO SCH (08:38)
[2019-06-03] MEDS ORDERED: SCOP1PAT2 TOP (09:59)
[2019-06-03] MEDS ORDERED: OXYC15TA66 PO (09:59)
[2019-06-03] MEDS ORDERED: ATIV1TAB7 PO (09:59)
[2019-06-03] MEDS ORDERED: Morphine Sulfate Oral Conc. SL (09:59)
[2019-06-03] MEDS ORDERED: MORP20SO PO (10:03)
--- NOTE | 2019-06-03 15:53 | DS.PDOC ---
Discharge Summary General Date of Admission May 25, 2019 at 08:39 Date of Discharge 06/03/19 Discharge Summary PROCEDURES PERFORMED DURING STAY: None. ADMITTING DIAGNOSES: 1. SBO. DISCHARGE DIAGNOSES: 1. SBO. Metastatic malignant adenocarcinoma of unknown origin, ulcerative colitis, diverticulosis COMPLICATIONS/CHIEF COMPLAINT: Small Bowel Obstruction. HISTORY OF PRESENT ILLNESS: This is a 74 years old white female with past medical history of asthma, ulcerative colitis, multiple abdominal surgeries, diverticulosis, was recently admitted to this hospital on April 16 and discharged on April 21 with the diagnosis of SBO which has resolved spontaneously. Patient this time has not been feeling good since last 2 days, complaining of abdominal pain which was generalized in nature nature, no nradiating, not associated with any other symptoms, symptoms are not worsened or improved with any position,medication of food, but since last night she started having frequent vomiting and decided come to ED she is being admitted with a recurrent SBO . Note: Patient complaining of weight loss of 18 pounds since March and also loss of appetite since March.. HOSPITAL COURSE: 74 years old, white female was admitted with Recurrent small bowel obstruction: Previous episode 1 month ago, has had multiple abdominal surgeries, underwent exploratory laparoscopy which showed multiple metastatic lesions in the peritoneal cavity, pathology positive for metastatic adenocarcinoma, patient has elected for home hospice, I had a extensive discussion with patient and they agreed with comfort care only. NG tube was removed. Patient was started on comfort feeding as well as comfort meds. Home hospice was arranged and patient will be discharged home today on home hospice care secondary to metastatic malignant adenocarcinoma of unknown origin . DISCHARGE MEDICATIONS: Please see below. ALLERGIES: Please see below. PHYSICAL EXAMINATION ON DISCHARGE: VITAL SIGNS: Please see below. GENERAL: Within normal limits HEENT: PERRLA, extra ocular muscles intact NECK:. Supple CARDIOVASCULAR EXAMINATION:. S1, S2, regular RESPIRATORY EXAMINATION:, Clear to A&P ABDOMINAL EXAMINATION:. Benign EXTREMITIES: No clubbing, cyanosis, edema SKIN:. Normal NEUROLOGICAL EXAMINATION: no Focal motor sensory deficit PSYCHIATRIC EXAMINATION:. Normal LABORATORY DATA: Please see below. IMAGING: CT abdomen and pelvis:1. Small bowel obstruction with transition point in the right pelvis best appreciated on image #108. 2. Small complex ascites with evidence of peritoneal carcinomatosis and caking. 3. Interval development of several indeterminate hypoattenuating subcapsular right hepatic lobe probably solid lesions are noted. These measure up to 1 cm in diameter. Appearance is concerning for liver metastasis. PROGNOSIS: Poor ACTIVITY: As tolerated. DIET: Comfort diet DISCHARGE PLAN: Discharge her home on hospice DISPOSITION: 01 Home, Self-Care. DISCHARGE INSTRUCTIONS: 1. As per discharge instructions. ITEMS TO FOLLOWUP ON ON OUTPATIENT: 1. Follow with a hospital in outpatient. DISCHARGE CONDITION: Stable. TIME SPENT ON DISCHARGE: 25 minutes. Vital Signs/I&Os Vital Signs Date Time Temp Pulse Resp B/P (MAP) Pulse Ox O2 Delivery O2 Flow Rate FiO2 06/02/19 06:00 98.3 77 16 95/66 (76) 92 Room Air 05/29/19 10:00 2.0 I&O- Last 24 Hours up to 6 AM 06/03/19 06:00 Intake Total 300 ml Balance 300 ml Discharge Medications Scheduled Budesonide/Formoterol (Symbicort 80-4.5 Mcg Inhaler) 6.9 Gm Hfa.aer.ad, 1 PUFF INH BID, (Reported) Ergocalciferol (Vitamin D2) (Vitamin D2) 50,000 Units Cap, 50,000 UNIT PO 1XWK, (Reported) SATURDAYS Oxycodone HCl (Oxycontin) 15 Mg Tab.er.12h, 15 MG PO BID Risedronate Sodium (Risedronate Sodium) 35 Mg Tab, 70 MG PO 1XWK, (Reported) TAKES ON SATURDAYS Theophylline Anhydrous (Theophylline) 400 Mg Tabcr, 400 MG PO DAILY, (Reported) TAKES AT 0700 Scheduled PRN Albuterol Sulfate (Proair Hfa) 108 Mcg/Act Aer, 2 PUFF INH Q4H PRN for SOB/WHEEZING, (Reported) Lorazepam (Ativan) 1 Mg Tablet, 1 MG PO Q2HP PRN for ANXIETY Morphine Sulfate (Morphine Sulfate) 20 Mg/5 Ml Solution, 5 MG PO Q4H PRN for PAIN Scopolamine (Transderm-Scop) 1 Each Patch.td.3, 1 MG TOP Q3DP PRN for EXCESSIVE SECRETIONS Sumatriptan Succinate (Sumatriptan Succinate) 25 Mg Tab, 25 MG PO BID PRN for MIGRAINE, (Reported) Allergies Coded Allergies: Influenza Virus Vaccines (Verified Allergy, Intermediate, swelling of arm x 2 when receiving injectable vaccine, 04/16/19) verified with pt on admission 04/16/19 bacitracin (Verified Adverse Reaction, Unknown, 04/16/19) PATIENT STATES IT DOESN'T WORK ON HER SO SHE MUST BE ALLERGIC neomycin (Verified Adverse Reaction, Unknown, 04/16/19) PATIENT STATES IT DOESN'T WORK ON HER SO SHE MUST BE ALLERGIC polymyxin B (Verified Adverse Reaction, Unknown, 04/16/19) PATIENT STATES IT DOESN'T WORK ON HER SO SHE MUST BE ALLERGIC EBENEZER SANDS MD Jun 03, 2019 15:53
--- NOTE | 2019-06-04 11:19 | IPN ---
DATE: 06/02/2019 HISTORY: The patient had presented with a bowel obstruction and underwent laparoscopy with findings of innumerable small nodules over the surface of the abdominal contents. Biopsies confirmed metastatic adenocarcinoma. Over the weekend her nasogastric (NG) tube was clamped, and she tolerated some clear liquids and the tube was discontinued this morning by the hospitalist. She is currently not having any significant discomfort and has had some flatus and some small bowel movements over the weekend. Vital sign show that she has been afebrile. Her pulse has remained in the 70s and 80s. Blood pressure is good. Intake and output show that yesterday she had 480 mL recorded in, although I suspect that under reports her IV intake and she did have 300 mL of urine output recorded. PHYSICAL EXAM: The patient is sitting up in bed looking pretty comfortable with her daughter at the bedside. She is alert and oriented. She is breathing easily and denies any pain currently. Laboratory studies have not been repeated since 05/30/2019. IMPRESSION: The patient has stage IV adenocarcinoma with carcinomatosis. The pathology reports that this is metastatic adenocarcinoma of possible upper gastrointestinal (GI) or pancreaticobiliary origin. She appears quite comfortable currently and the plan is for her to go home with hospice. PLAN: The daughter reports that the hospital bed is being delivered today and the plan is for discharge home on 06/03/2019. The patient has not yet met with the intake person from hospice but they are supposed to come and visit at the house. Currently the patient is quite comfortable and she tolerated removal of her NG well. I do not have any further recommendations for her care. I do think the choice of hospice is quite appropriate for her circumstances.
== END 2019-06-03 12:13 | disposition hospice, home (50) | DRG 357 ==
LOC: EDBD 04:10 → M ED 04:10 → M ED INP 08:39 → CANRESERV 08:51 → ENRESERVTM 08:51 → ENRESERVDT 08:51 → M MSPAV 09:44
PROVIDERS: ADMIT Internal Medicine; ATTEND Internal Medicine
PROC: 0W9G4ZX Drainage of Peritoneal Cavity, Percutaneous Endoscopic Approach, Diagnostic (ICD-10-PCS; 2019-05-28)
PROC: 0DBW4ZX Excision of Peritoneum, Percutaneous Endoscopic Approach, Diagnostic (ICD-10-PCS; 2019-05-28)
PROC: 0WJG4ZZ Inspection of Peritoneal Cavity, Percutaneous Endoscopic Approach (ICD-10-PCS; principal; 2019-05-28 12:05)
DX: K56.609 Unspecified intestinal obstruction, unspecified as to partial versus complete obstruction (principal); K51.90 Ulcerative colitis, unspecified, without complications; R18.0 Malignant ascites; C78.6 Secondary malignant neoplasm of retroperitoneum and peritoneum; Z51.5 Encounter for palliative care; K57.30 Diverticulosis of large intestine without perforation or abscess without bleeding; J45.909 Unspecified asthma, uncomplicated; Z79.899 Other long term (current) drug therapy; Z88.8 Allergy status to other drugs, medicaments and biological substances; Z88.7 Allergy status to serum and vaccine; C80.1 Malignant (primary) neoplasm, unspecified